=== PATIENT | female | born 1990 | race Caucasian/White ===

== ENCOUNTER 2019-01-28 17:34 | Emergency (ER) | payer SELFPAY ==
--- NOTE | 2019-01-28 19:29 | EDM.PDOC ---
ED HPI GENERAL MEDICAL PROBLEM - General Chief Complaint: Respiratory Problem Stated Complaint: ASTHMA,CHEST PAIN,SOB Time Seen by Provider: 01/28/19 17:46 Source of Information: Reports: Patient History Limitations: Reports: No Limitations - History of Present Illness INITIAL COMMENTS - FREE TEXT/NARRATIVE: The patient presents with chest pain and shortness of breath. She also has a cough. She has no fever but she has chills. She has a history of asthma and she was at the walk in clinic today and put on prednisone. She has not gotten any better. She has no abdominal pain, nausea or vomiting. She has some swelling in her legs at times but no history of DVT or PE. Onset: Gradual Duration: Day(s): Location: Reports: Chest Quality: Reports: Pressure, Sharp (and ) Severity: Moderate Improves with: Reports: None Worsens with: Reports: None Associated Symptoms: Reports: Chest Pain, Cough, Fever/Chills, Shortness of Breath. Denies: Headaches, Nausea/Vomiting Chest Pain Score (Numeric/FACES): 6 - Related Data Allergies Allergy/AdvReac Type Severity Reaction Status Date / Time grass pollen Allergy Cannot Verified 01/28/19 17:58 Remember cow milk Allergy Hives Uncoded 01/28/19 17:58 essential oils Allergy Anaphylactic Uncoded 01/28/19 17:58 Shock tylenol with codeine Allergy Vomiting Uncoded 01/28/19 17:58 Home Meds: Home Meds Albuterol [Proventil Neb Soln] 2.5 mg NEB ASDIRECTED 01/28/19 [History] Dicyclomine [Bentyl] 10 mg PO BID 01/28/19 [History] Doxycycline [Doxycycline Hyclate] 100 mg PO DAILY 01/28/19 [History] Eluxadoline [Viberzi] 100 mg PO DAILY 01/28/19 [History] Epi-Pen. 01/28/19 [History] Fluconazole [Diflucan] 100 mg PO ASDIRECTED 01/28/19 [History] LORazepam 0.5 mg PO BID PRN 01/28/19 [History] Levothyroxine Sodium [Synthroid] 25 mcg PO DAILY 01/28/19 [History] Lisdexamfetamine Dimesylate [Vyvanse] 20 mg PO DAILY 01/28/19 [History] Metoprolol Succinate 50 mg PO DAILY 01/28/19 [History] Mirtazapine 45 mg PO BEDTIME 01/28/19 [History] Mirtazapine [Remeron] 15 mg PO DAILY 01/28/19 [History] Pantoprazole Sodium [Protonix] 40 mg PO DAILY 01/28/19 [History] QUEtiapine [SEROquel] 300 mg PO BEDTIME 01/28/19 [History] SUMAtriptan [Imitrex] 100 mg PO ASDIRECTED PRN 01/28/19 [History] Temazepam 30 mg PO BEDTIME 01/28/19 [History] Topiramate [Topamax] 100 mg PO ASDIRECTED 01/28/19 [History] buPROPion [buPROPion XL] 300 mg PO DAILY 01/28/19 [History] lamoTRIgine [Lamotrigine] 50 mg PO BID 01/28/19 [History] metFORMIN [Glucophage] 500 mg PO DAILY 01/28/19 [History] predniSONE 40 mg PO DAILY 01/28/19 [History] Past Medical History Respiratory History: Reports: Asthma Gastrointestinal History: Reports: Irritable Bowel Syndrome [address] [employer] History: Reports: Endometriosis Psychiatric History: Reports: Depression Social & Family History - Tobacco Use Smoking Status *Q: Current Some Day Smoker Years of Tobacco use: 1 Packs/Tins Daily: 0.1 - Recreational Drug Use Recreational Drug Use: No ED ROS GENERAL - Review of Systems Review Of Systems: See Below Constitutional: Reports: Chills. Denies: Fever HEENT: Reports: No Symptoms Respiratory: Reports: Shortness of Breath Cardiovascular: Reports: Chest Pain Endocrine: Reports: No Symptoms GI/Abdominal: Reports: No Symptoms : Reports: No Symptoms Musculoskeletal: Reports: No Symptoms Skin: Reports: No Symptoms Neurological: Reports: No Symptoms ED EXAM, GENERAL - Physical Exam Exam: See Below Exam Limited By: No Limitations General Appearance: Alert, No Apparent Distress Ears: Normal External Exam Nose: Normal Inspection Head: Atraumatic, Normocephalic Neck: Normal Inspection Respiratory/Chest: No Respiratory Distress, Lungs Clear, Normal Breath Sounds Cardiovascular: Regular Rate, Rhythm, No Edema, No Murmur GI/Abdominal: Soft, Non-Tender, No Organomegaly, No Mass Back Exam: Normal Inspection Extremities: Normal Inspection EKG INTERPRETATION EKG Date: 01/28/19 Time: 16:13 Rhythm: NSR Rate (Beats/Min): 83 [place]: Normal P-Wave: Present QRS: Normal ST-T: Normal QT: Normal Course - Vital Signs Last Recorded V/S: Last Vital Signs Temp 97.3 F 01/28/19 17:43 Pulse 83 01/28/19 17:43 Resp 18 01/28/19 17:43 BP 112/82 01/28/19 17:43 Pulse Ox 97 01/28/19 17:43 - Orders/Labs/Meds Orders: Active Orders 24 hr Category Date Time Status Cardiac Monitoring [RC] . DIRECTED Care 01/28/19 17:54 Active EKG Documentation Completion [RC] STAT Care 01/28/19 17:54 Active Chest 2V [CR] Stat Exams 01/28/19 17:54 Taken traMADol [Ultram] Med 01/28/19 19:40 Once 100 mg PO ONETIME ONE Labs: Laboratory Tests 01/28/19 01/28/19 01/28/19 Range/Units 18:05 18:05 18:05 WBC 8.25 (3.98-10.04) K/mm3 RBC 4.73 (3.98-5.22) M/mm3 Hgb 14.9 (11.2-15.7) gm/L Hct 43.4 (34.1-44.9) % MCV 91.8 (79.4-94.8) fl MCH 31.5 (25.6-32.2) pg MCHC 34.3 (32.2-35.5) g/dl RDW Std Deviation 41.4 (36.4-46.3) fL Plt Count 283 (182-369) K/mm3 MPV 9.3 L (9.4-12.3) fl Neut % (Auto) 84.4 H (34.0-71.1) % Lymph % (Auto) 12.8 L (19.3-51.7) % Wilkin % (Auto) 2.1 L (4.7-12.5) % Eos % (Auto) 0.4 L (0.7-5.8) Baso % (Auto) 0.2 (0.1-1.2) % Neut # (Auto) 6.96 H (1.56-6.13) K/mm3 Lymph # (Auto) 1.06 L (1.18-3.74) K/mm3 Wilkin # (Auto) 0.17 L (0.24-0.36) K/mm3 Eos # (Auto) 0.03 L (0.04-0.36) K/mm3 Baso # (Auto) 0.02 (0.01-0.08) K/mm3 D-Dimer, Quantitative 0.30 (0.19-0.50) mg/L Sodium 141 (136-145) mEq/L Potassium 4.0 (3.5-5.1) mEq/L Chloride 110 H (98-107) mEq/L Carbon Dioxide 19 L (21-32) mEq/L Anion Gap 16.0 H (5-15) BUN 13 (7-18) mg/dL Creatinine 1.0 (0.55-1.02) mg/dL Est Cr Clr Drug Dosing 63.20 mL/min Estimated GFR (MDRD) > 60 (>60) mL/min BUN/Creatinine Ratio 13.0 L (14-18) Glucose 165 H (74-106) mg/dL Calcium 8.9 (8.5-10.1) mg/dL Total Bilirubin 0.3 (0.2-1.0) mg/dL AST 23 (15-37) U/L ALT 33 (14-59) U/L Alkaline Phosphatase 69 (46-116) U/L Troponin I < 0.017 (0.00-0.056) ng/mL Total Protein 7.3 (6.4-8.2) g/dl Albumin 3.5 (3.4-5.0) g/dl Globulin 3.8 gm/dL Albumin/Globulin Ratio 0.9 L (1-2) - Re-Assessments/Exams Free Text/Narrative Re-Assessment/Exam: 01/28/19 19:32 I ordered an EKG, CXR and labs. He EKG shows a NSR with no acute changes. Her CXR looks good. Her CBC looks good. Her D-dimer was normal and her troponin was negative. Her anion gap was slightly elevated at 16. Her glucose was elevated at 165. 01/28/19 19:41 I will give her an ultram for her pain and discharge her home. Departure - Departure Time of Disposition: 19:45 Disposition: Home, Self-Care 01 Condition: Good Clinical Impression: Chest wall pain Asthma exacerbation Qualifiers: Asthma severity: mild Asthma persistence: intermittent Qualified Code(s): J45.21 - Mild intermittent asthma with (acute) exacerbation - Discharge Information *PRESCRIPTION DRUG MONITORING PROGRAM REVIEWED*: Not Applicable *COPY OF PRESCRIPTION DRUG MONITORING REPORT IN PATIENT GUME: Not Applicable Referrals: PCP,None [Primary Care Provider] - Forms: ED Department Discharge Additional Instructions: Take the prednisone as prescribed and use your albuterol inhaler as needed. Take tylenol as needed for pain. Follow up with your doctor in 1 week. Please return if you are worse. - My Orders Last 24 Hours: My Active Orders 01/28/19 17:54 Cardiac Monitoring [RC] . DIRECTED EKG Documentation Completion [RC] STAT Chest 2V [CR] Stat 01/28/19 19:40 traMADol [Ultram] 100 mg PO ONETIME ONE - Assessment/Plan Last 24 Hours: My Active Orders 01/28/19 17:54 Cardiac Monitoring [RC] . DIRECTED EKG Documentation Completion [RC] STAT Chest 2V [CR] Stat 01/28/19 19:40 traMADol [Ultram] 100 mg PO ONETIME ONE
[2019-01-28] MEDS ORDERED: traMADol 50 MG Tab PO ONE (19:40)
--- NOTE | 2019-01-29 06:27 | CR ---
Chest: Two views of the chest were obtained. Comparison: No prior chest x-ray. Heart size and mediastinum are normal. Lungs are clear. Bony structures are unremarkable. Impression: 1. Nothing acute is seen on two-view chest x-ray. Diagnostic code #1
== END 2019-01-28 20:09 | disposition home or self-care (01) ==
LOC: JD.ED 17:34
DX: R07.89 Other chest pain (principal); F32.9 Major depressive disorder, single episode, unspecified; F17.210 Nicotine dependence, cigarettes, uncomplicated; Z91.011 Allergy to milk products; Z91.018 Allergy to other foods
CPT/HCPCS: 36415; 71046; 80053; 84484; 85025; 85379; 93005; 99285; A9270; 93010; 99284

== ENCOUNTER 2019-09-27 23:37 | Emergency (ER) | payer SELFPAY ==
--- NOTE | 2019-09-28 01:25 | EDM.PDOC ---
ED HPI GENERAL MEDICAL PROBLEM - General Chief Complaint: Respiratory Problem Stated Complaint: COUGH LOSS OF VOICE Time Seen by Provider: 09/28/19 00:51 Source of Information: Reports: Patient, Family () History Limitations: Reports: No Limitations - History of Present Illness INITIAL COMMENTS - FREE TEXT/NARRATIVE: Mrs. Hale is a very pleasant 29-year-old woman with a past medical history significant for asthma, irritable bowel syndrome, endometriosis, prediabetes, and untreated depression, PTSD, and obstructive sleep apnea, who states that she has been sick on and off for the past month. She reports a cough occasionally productive of green sputum, and slight wheezing. She reports laryngitis, and, indeed, she has a hoarse, thin voice at this time. She states that her back and stomach have been hurting. These are no worse if she is supine. She states that she has had some nausea, but no vomiting. She denies having a sore throat. No recent fever, constipation, diarrhea, or urinary symptoms. The patient has been taking Mucinex, Sudafed, and Delsym, all without any relief of symptoms. The patient states that she saw Dr. Carline Addison on 08/24/2019, but that no tests were done. She was diagnosed with bronchitis, and prescribed prednisone. She states that she then saw her PCP on 09/18/2019. She states that again no tests were done, but that she was prescribed a Z-Bebo and Flovent. She states that the Flovent was to treat her asthma, but the patient does not know why she was prescribed a Z-Bebo. She states that she then saw Allie Martinez NP, on 09/22/2019. She states that again no tests were done, but that she was prescribed prednisone and amoxicillin , again to treat asthma and something else. The patient's PCP is Jenni Vazquez NP. The patient did not receive an influenza vaccine this season, but agreed to receive one here. - Related Data Allergies Allergy/AdvReac Type Severity Reaction Status Date / Time grass pollen Allergy Cannot Verified 09/28/19 00:05 Remember cow milk Allergy Hives Uncoded 08/30/19 07:58 essential oils Allergy Anaphylactic Uncoded 08/30/19 07:58 Shock tylenol with codeine Allergy Vomiting Uncoded 08/30/19 07:58 Home Meds: Home Meds Albuterol [Proventil Neb Soln] 2.5 mg NEB ASDIRECTED 01/28/19 [History] Epi-Pen. 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: Reports: Endometriosis (exploratory laparoscopy-confirmed) Psychiatric History: Reports: Depression (untreated), PTSD (untreated) Endocrine/Metabolic History: Reports: Obesity/BMI 30+, Other (See Below) ( Prediabetes) - Past Surgical History HEENT Surgical History: Reports: Adenoidectomy, Oral Surgery (wisdom teeth extraction), Tonsillectomy GI Surgical History: Reports: Colonoscopy (x 3), EGD (x 2) Female Surgical History: Reports: Other (See Below) (Exploratory laparoscopy for endometriosis x 2) Musculoskeletal Surgical History: Reports: Other (See Below) (Right patellar realignment) Social & Family History - Family History Family Medical History: Noncontributory - Tobacco Use Smoking Status *Q: Former Smoker Years of Tobacco use: 11 Packs/Tins Daily: 0.1 Month/Year Tobacco Last Used: Quit March 2019 - Caffeine Use Caffeine Use: Reports: Coffee, Energy Drinks, Soda, Tea - Alcohol Use Alcohol Use History: Yes Alcohol Use Frequency: Socially - Recreational Drug Use Recreational Drug Use: No - Living Situation & Occupation Living situation: Reports: , with Spouse Occupation: Unemployed ED ROS GENERAL - Review of Systems Review Of Systems: Comprehensive ROS is negative, except as noted in HPI. ED EXAM, GENERAL - Physical Exam Exam: See Below Exam Limited By: No Limitations General Appearance: Alert, WD/WN, No Apparent Distress Eye Exam: Bilateral Eye: EOMI, Normal Inspection Ears: Normal External Exam, Normal Canal, Hearing Grossly Normal, Normal TMs Nose: Normal Inspection, No Blood, Other (Bilateral nasal mucosa edema) Throat/Mouth: Normal Inspection, Normal Lips, Normal Teeth, Normal Gums, Normal Oropharynx, No Airway Compromise, Other (Hoarse voice) Head: Atraumatic, Normocephalic Neck: Normal Inspection, Supple, Non-Tender, Full Range of Motion. No: Lymphadenopathy (L), Lymphadenopathy (R) Respiratory/Chest: No Respiratory Distress, No Accessory Muscle Use, Chest Non- Tender, Crackles (slight, right lungfield only). No: Decreased Breath Sounds, Rhonchi, Wheezing, Stridor, Prolonged Expiration Cardiovascular: Normal Peripheral Pulses, Regular Rate, Rhythm, No Edema, No Gallop, No JVD, No Murmur, No Rub Peripheral Pulses: 4+: Radial (L), Radial (R) GI/Abdominal: Normal Bowel Sounds, Soft, Non-Tender, No Organomegaly, No Distention, No Abnormal Bruit, No Mass (Female) Exam: Deferred Rectal (Female) Exam: Deferred Back Exam: Normal Inspection, Full Range of Motion, NT Extremities: Normal Inspection, Normal Range of Motion, No Pedal Edema, Normal Capillary Refill Neurological: Alert, Oriented, Normal Cognition, No Motor/Sensory Deficits Psychiatric: Normal Affect Skin Exam: Warm, Dry, Intact, Normal Color, No Rash Course - Vital Signs Last Recorded V/S: Last Vital Signs Temp 36.2 C 09/28/19 00:01 Pulse 77 09/28/19 00:01 Resp 20 09/28/19 00:01 BP 115/75 09/28/19 00:01 Pulse Ox 97 09/28/19 00:01 - Orders/Labs/Meds Meds: Medications Discontinued Medications Generic Name Dose Route Start Last Admin Trade Name Freq PRN Reason Stop Dose Admin Influenza Virus Vaccine 60 mcg 09/28/19 02:30 09/28/19 03:16 Fluzone Quad [id number] Syringe IM 09/28/19 02:31 60 mcg .ONCE ONE Administration - Re-Assessments/Exams Free Text/Narrative Re-Assessment/Exam: 09/28/19 02:05 Because I thought I heard some crackles on the right lung field, I ordered a chest x-ray, but because the patient has not had a fever, and her oxygen saturation is normal, I did not order any blood work. 2-view chest radiograph appears to be grossly normal. The cardiac silhouette is within normal limits. No pulmonary vascular congestion. No pleural effusions. No focal infiltrate. No pneumothorax. Formal read per the Radiologist pending. Chest x-ray results discussed with the patient and her . The patient appears to have a viral URI with postnasal drip causing her to have a cough. She is not suffering from an asthma exacerbation, and she does not have bronchitis or pneumonia. I recommended that she stop taking the over-the- counter cough and cold remedies that she has been taking, all of which are of no use. I had the respiratory therapist provide the patient a peak flow meter and a space chamber, with instructions to the patient on how to use them. The patient will receive an influenza vaccine prior to discharge. Departure - Departure Time of Disposition: 02:13 Disposition: Home, Self-Care 01 Condition: Good Clinical Impression: Viral URI with cough - Discharge Information *PRESCRIPTION DRUG MONITORING PROGRAM REVIEWED*: Not Applicable *COPY OF PRESCRIPTION DRUG MONITORING REPORT IN PATIENT GUME: Not Applicable Instructions: Upper Respiratory Infection, Adult, [id number] Referrals: Jenni Vazquez MD [Primary Care Provider] - Forms: ED Department Discharge Additional Instructions: You were seen in the emergency room for 1 month of a cough with laryngitis. Workup in the ER included a chest x-ray, which returned normal. You do not have pneumonia or bronchitis. Based on your history, physical exam, and chest x-ray results, your cough and laryngitis are most likely due to a viral URI, also known as a common cold. You are not suffering from an asthma exacerbation. As discussed, we recommend that you discontinue all of the [id number] cough and cold medicines, as well as the Flovent. You have been given a peak flow meter and a space chamber. If you are suffering from shortness of breath and wheezing, with or without a cough, check your peak flow. If it is in the green zone, do not use albuterol, however, if it is in the yellow or red zone, use albuterol as much as necessary to get relief. If you require albuterol more often than every 4 hours, you need to be seen by a doctor. Make sure that you use your space chamber whenever you use your albuterol MDI, and be sure to shake your MDI for at least 10 seconds prior to activating it. If any other problems, please do not hesitate to return to the ER. *You received an influenza vaccine during your ER visit.* Sepsis Event Note - Evaluation Sepsis Screening Result: No Definite Risk - Focused Exam Date Exam was Performed: 09/30/19 Time Exam was Performed: 23:21
[2019-09-28] MEDS ORDERED: FLU Vacc QS2019-20(6MOS+)/PF 60 MCG/0.5 ML SYRINGE IM ONE (02:30)
--- NOTE | 2019-09-28 07:50 | CR ---
Chest: Two views of the chest were obtained. Comparison: Prior chest x-ray of 01/28/19. Heart size and mediastinum are normal. Lungs are clear with no acute parenchymal change. Bony structures are unremarkable. Impression: 1. Nothing acute is seen on two-view chest x-ray. Diagnostic code #1 This report was dictated in [place] Standard Time
== END 2019-09-28 03:17 | disposition home or self-care (01) ==
LOC: JD.ED 23:37
DX: J06.9 Acute upper respiratory infection, unspecified (principal); Z88.5 Allergy status to narcotic agent; Z91.011 Allergy to milk products; Z88.8 Allergy status to other drugs, medicaments and biological substances; Z91.018 Allergy to other foods; Z91.048 Other nonmedicinal substance allergy status; Z79.899 Other long term (current) drug therapy; Z98.890 Other specified postprocedural states; Z87.891 Personal history of nicotine dependence; Z23 Encounter for immunization
CPT/HCPCS: 71046; 71046-26; 90686; 99281; 99283-25; G0008

== ENCOUNTER 2019-10-12 08:54 | Emergency (ER) | payer SELFPAY ==
--- NOTE | 2019-10-12 09:38 | EDM.PDOC ---
ED HPI GENERAL MEDICAL PROBLEM - General Chief Complaint: Allergic Reaction Stated Complaint: POSS ALLERGIC REACTION Time Seen by Provider: 10/12/19 09:37 Source of Information: Reports: Patient History Limitations: Reports: No Limitations - History of Present Illness INITIAL COMMENTS - FREE TEXT/NARRATIVE: 29-year-old female presents to the ED with generalized pruritus and throat itching and feeling like it's closing with some difficulty breathing as well since inhaling aromatic essential oils last night. She developed a bit of a red rash on her upper anterior chest but otherwise feels generally pruritic. She has no asthmatic and did use her inhaler once last night. Start Benadryl 50 mg before bed last night and 25 mg at 0600 hrs. this morning without much relief. The nation reveals good air entry to both lung [place] without any wheezing. She is in no distress. Onset: Sudden Onset Date: 10/11/19 Onset Time: 21:00 Duration: Hour(s): (Used essential oils last night.), Constant, Other (Not getting better.) Location: Reports: Neck, Chest ( Eyes pruritus him difficulty breathing and wheezing. ), Generalized (Does like throat is closing.) Quality: Reports: Other Severity: Moderate (Mostly generalized itching with a sense of itching in her throat and throat closure.) Improves with: Reports: None Worsens with: Reports: None Context: Reports: Other (Inhalation of essential oils last night. She did not apply any to her skin.). Denies: Activity, Exercise, Lifting, Sick Contact, Trauma Associated Symptoms: Reports: Malaise, Other. 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 2 mg last night about 2200 hrs. and 25 mg at 0600 hrs. this morning.) Throat Pain Score (Numeric/FACES): 6 - Related Data Allergies Allergy/AdvReac Type Severity Reaction Status Date / Time grass pollen Allergy Cannot Verified 10/12/19 09:05 Remember cow milk Allergy Hives Uncoded 10/12/19 09:05 essential oils Allergy Anaphylactic Uncoded 10/12/19 09:05 Shock tylenol with codeine Allergy Vomiting Uncoded 10/12/19 09:05 Home Meds: Home Meds Albuterol [Proventil Neb Soln] 2.5 mg NEB ASDIRECTED 01/28/19 [History] Epi-Pen. 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 Neurological History: Reports: Headaches, Chronic, Migraines Psychiatric History: Reports: ADHD, Anxiety, Depression, PTSD Endocrine/Metabolic History: Reports: Hypothyroidism, Obesity/BMI 30+, Other ( See Below) Other Endocrine/Metabolic History: insulin resistent - Infectious Disease History Infectious Disease History: Reports: Chicken Pox - Past Surgical History HEENT Surgical History: Reports: Adenoidectomy, Oral Surgery, Tonsillectomy GI Surgical History: Reports: Colonoscopy, EGD Female Surgical History: Reports: Other (See Below) Musculoskeletal Surgical History: Reports: Other (See Below) Other Musculoskeletal Surgeries/Procedures:: R knee sx Social & Family History - Family History Family Medical History: Noncontributory - Tobacco Use Smoking Status *Q: Former Smoker Used Tobacco, but Quit: Yes Month/Year Tobacco Last Used: 03/2019 - Caffeine Use Caffeine Use: Reports: Coffee, Energy Drinks, Soda, Tea - Recreational Drug Use Recreational Drug Use: No - Living Situation & Occupation Living situation: Reports: , with Spouse Occupation: Unemployed ED ROS ALLERGIC REACTION - Review of Systems Review Of Systems: See Below Constitutional: Reports: Malaise, Weakness, Fatigue, Decreased Appetite. Denies : Fever, Chills, Weight Loss (Lesion taking Benadryl) HEENT: Reports: Throat Swelling (Does like her throat is slightly swollen. Moist is a little hoarse this morning as well.) Respiratory: Reports: Shortness of Breath, Wheezing, Cough. Denies: Pleuritic Chest Pain (Improved after taking albuterol neb at home.), Sputum, Hemoptysis Cardiovascular: Reports: No Symptoms Endocrine: Reports: Fatigue GI/Abdominal: Reports: No Symptoms : Reports: No Symptoms Musculoskeletal: Reports: No Symptoms Skin: Reports: Other (Little patch of red rash upper anterior chest just at the sternal clavicular joint midline) Neurological: Reports: Dizziness Psychiatric: Reports: No Symptoms (Generalized pruritus) Hematologic/Lymphatic: Reports: No Symptoms Immunologic: Reports: No Symptoms ED EXAM GENERAL NO PERIP PULSE - Physical Exam Exam: See Below Exam Limited By: No Limitations General Appearance: Alert, WD/WN, No Apparent Distress, Other (Vital signs temperature 36.3 with pulse of 61 and sinus respiratory disease 18 BP 109/83 O2 sats 94% on room air.) Eye Exam: Bilateral Eye: Normal Inspection (No inflammation of the conjunctiva) Ears: Normal TMs Nose: Normal Inspection Throat/Mouth: Normal Inspection, Normal Lips, Normal Teeth, Normal Oropharynx, Other Head: Atraumatic, Normocephalic (Uvula is slightly erythematous I believe from coughing.) Neck: Normal Inspection, Supple, Non-Tender, Full Range of Motion. No: Lymphadenopathy (L), Lymphadenopathy (R) Respiratory/Chest: No Respiratory Distress, Lungs Clear, Normal Breath Sounds, No Accessory Muscle Use, Chest Non-Tender. No: Wheezing, Stridor Cardiovascular: Normal Peripheral Pulses, Regular Rate, Rhythm, No Edema, No Gallop, No Murmur, No Rub GI/Abdominal: Normal Bowel Sounds, Soft, Non-Tender, No Organomegaly Extremities: Normal Inspection, Normal Range of Motion, Non-Tender, No Pedal Edema Neurological: Alert, Oriented, CN II-XII Intact, Normal Cognition, Normal Gait Psychiatric: Normal Affect, Normal Mood Skin Exam: Warm, Dry, Intact, Normal Color, No Rash (Light erythematous rash upper anterior chest.), Other (No hives) Course - Vital Signs Last Recorded V/S: Last Vital Signs Temp 36.3 C 10/12/19 09:01 Pulse 61 10/12/19 09:01 Resp 18 10/12/19 09:01 BP 109/83 10/12/19 09:01 Pulse Ox 94 L 10/12/19 09:01 - Orders/Labs/Meds Meds: Medications Discontinued Medications Generic Name Dose Route Start Last Admin Trade Name Freq PRN Reason Stop Dose Admin Hydroxyzine HCl 25 mg 10/12/19 09:48 10/12/19 10:07 Atarax PO 10/12/19 09:49 25 mg ONETIME ONE Administration Prednisone 30 mg 10/12/19 09:48 10/12/19 10:07 Prednisone PO 10/12/19 09:49 30 mg ONETIME ONE Administration - Radiology Interpretation Free Text/Narrative:: 29-year-old female presents to the ED with development of mild allergic reaction to inhaling and safety central oils last night. Suggest this at about 2100 hrs. and by 2200 hrs. appreciated that she was struggling a bit with throat swelling itching and generalized pruritus development and some shortness of breath. She did use Benadryl 50 mg last night about 2200 hrs. and you did use her albuterol inhaler. She was still somewhat symptomatic this morning and took Benadryl 25 mg at 0600 hrs. Examination reveals some mild erythematous rash anterior upper chest but no urticaria. She has suffered from generalized pruritus. There is no stridor. For the mouth and uvula are normal. Plan prednisone 30 mg by mouth now and Atarax 25 mg by mouth in the ED. She'll be discharged on prednisone 20 mg twice daily for the next 3 days with the next dose due at [facility]. Zyrtec 10 mg twice daily until no further itching. Note given to excuse her from the workplace today. Departure - Departure Time of Disposition: 09:58 Disposition: Home, Self-Care 01 Condition: Fair Clinical Impression: Allergic reaction Qualifiers: Encounter type: initial encounter Qualified Code(s): T78.40XA - Allergy, unspecified, initial encounter - Discharge Information *PRESCRIPTION DRUG MONITORING PROGRAM REVIEWED*: Not Applicable *COPY OF PRESCRIPTION DRUG MONITORING REPORT IN PATIENT GUME: Not Applicable Prescriptions: predniSONE [Prednisone] 20 mg PO BID #6 tablet Referrals: Jenni Vazquez MD [Primary Care Provider] - Forms: ED Department Discharge, ED Return to Work/School Form Additional Instructions: Evaluation the emergency room department in regards to development of allergy symptoms particularly to the upper airway and lungs after a using for inhaling aromatic oils. He is appear to be a significant irritant to your asthma and you developed upper airway inflammation from them as well. Also generalized itching. You have taken Benadryl last night and again this morning. 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 Initial dose of steroid prednisone was given in the ED 30 mg. You need to take 20 mg twice daily with breakfast and supper for the next 3 days with the next tablet being due at supper tonight. SPECT marked improvement in symptoms over the next 4 hours. Note given to excuse from the workplace today. Sepsis Event Note - Evaluation Sepsis Screening Result: No Definite Risk - Focused Exam Vital Signs: Vital Signs Temp Pulse Resp BP Pulse Ox 10/12/19 09:01 36.3 C 61 18 109/83 94 L Date Exam was Performed: 10/12/19 Time Exam was Performed: 11:16
[2019-10-12] MEDS ORDERED: predniSONE 20 MG Tab PO ONE (09:48)
[2019-10-12] MEDS ORDERED: hydrOXYzine HCl 25 MG Tab PO ONE (09:48)
== END 2019-10-12 10:48 | disposition home or self-care (01) ==
LOC: JD.ED 08:54
DX: T78.40XA Allergy, unspecified, initial encounter (principal); J45.909 Unspecified asthma, uncomplicated; E66.9 Obesity, unspecified; Z68.37 Body mass index [BMI] 37.0-37.9, adult; Z87.891 Personal history of nicotine dependence; Z79.899 Other long term (current) drug therapy; Z88.5 Allergy status to narcotic agent; Z91.018 Allergy to other foods; Z91.011 Allergy to milk products; Z91.048 Other nonmedicinal substance allergy status
CPT/HCPCS: 99283; A9270

== ENCOUNTER 2020-03-15 17:00 | Emergency (ER) | payer BC ==
[2020-03-15] MEDS ORDERED: predniSONE 10 MG Tab PO ONE (17:15)
[2020-03-15] MEDS ORDERED: Famotidine 20 MG Tab PO ONE (17:15)
--- NOTE | 2020-03-15 17:31 | EDM.PDOC ---
ED HPI GENERAL MEDICAL PROBLEM - General Chief Complaint: Allergic Reaction Stated Complaint: POSS ALLERGIC REACTION Time Seen by Provider: 03/15/20 17:09 Source of Information: Reports: Patient History Limitations: Reports: No Limitations - History of Present Illness INITIAL COMMENTS - FREE TEXT/NARRATIVE: The patient presents with an allergic reaction. She used some essential oils yesterday. She has a rash to her arm and back. She also has some throat swelling. She has no chest pain, abdominal pain, shortness of breath, nausea or vomiting. She did have an anaphylactic reaction with essential oils in the past. This was a shampoo and she did not realize essential oils were in it. Onset: Gradual Duration: Hour(s): Location: Reports: Back, Upper Extremity, Right Severity: Moderate Improves with: Reports: None Worsens with: Reports: None Associated Symptoms: Reports: No Other Symptoms - Related Data Allergies Allergy/AdvReac Type Severity Reaction Status Date / Time grass pollen Allergy Cannot Verified 03/15/20 17:11 Remember cow milk Allergy Hives Uncoded 10/12/19 09:05 essential oils Allergy Anaphylactic Uncoded 10/12/19 09:05 Shock tylenol with codeine Allergy Vomiting Uncoded 10/12/19 09:05 Home Meds: Home Meds Albuterol [Proventil Neb Soln] 2.5 mg NEB ASDIRECTED 01/28/19 [History] Epi-Pen. 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 Neurological History: Reports: Headaches, Chronic, Migraines Psychiatric History: Reports: ADHD, Anxiety, Depression, PTSD Endocrine/Metabolic History: Reports: Hypothyroidism, Obesity/BMI 30+, Other ( See Below) Other Endocrine/Metabolic History: insulin resistent - Infectious Disease History Infectious Disease History: Reports: Chicken Pox - Past Surgical History HEENT Surgical History: Reports: Adenoidectomy, Oral Surgery, Tonsillectomy GI Surgical History: Reports: Colonoscopy, EGD Female Surgical History: Reports: Other (See Below) Musculoskeletal Surgical History: Reports: Other (See Below) Other Musculoskeletal Surgeries/Procedures:: R knee sx Social & Family History - Family History Family Medical History: Noncontributory - Tobacco Use Smoking Status *Q: Never Smoker - Caffeine Use Caffeine Use: Reports: Coffee, Energy Drinks, Soda, Tea - Recreational Drug Use Recreational Drug Use: No - Living Situation & Occupation Living situation: Reports: , with Spouse Occupation: Unemployed ED ROS ALLERGIC REACTION - Review of Systems Review Of Systems: See Below Constitutional: Reports: No Symptoms HEENT: Reports: Other (Throat swelling) Respiratory: Reports: No Symptoms Cardiovascular: Reports: No Symptoms Endocrine: Reports: No Symptoms GI/Abdominal: Reports: No Symptoms : Reports: No Symptoms Musculoskeletal: Reports: No Symptoms Skin: Reports: Rash ED EXAM GENERAL NO PERIP PULSE - Physical Exam Exam: See Below Exam Limited By: No Limitations General Appearance: Alert, No Apparent Distress Ears: Normal External Exam Nose: Normal Inspection Throat/Mouth: Normal Inspection Head: Atraumatic, Normocephalic Neck: Normal Inspection Respiratory/Chest: No Respiratory Distress, Lungs Clear, Normal Breath Sounds Cardiovascular: Regular Rate, Rhythm, No Edema, No Murmur GI/Abdominal: Soft, Non-Tender, No Organomegaly, No Mass Back Exam: Normal Inspection Extremities: Normal Inspection Skin Exam: Other (The rash has improved. I only see a few small bumps) Course - Vital Signs Last Recorded V/S: Last Vital Signs Temp 98.2 F 03/15/20 17:08 Pulse 84 03/15/20 17:08 Resp 16 03/15/20 17:08 BP 118/74 03/15/20 17:08 Pulse Ox 98 03/15/20 17:08 - Orders/Labs/Meds Meds: Medications Discontinued Medications Generic Name Dose Route Start Last Admin Trade Name Freq PRN Reason Stop Dose Admin Famotidine 20 mg 03/15/20 17:15 03/15/20 17:22 Pepcid PO 03/15/20 17:16 20 mg ONETIME ONE Administration Prednisone 40 mg 03/15/20 17:15 03/15/20 17:22 Prednisone PO 03/15/20 17:16 40 mg ONETIME ONE Administration - Re-Assessments/Exams Free Text/Narrative Re-Assessment/Exam: 03/15/20 17:30 I ordered prednisone 40mg PO and pepcid 20mg PO. 03/15/20 18:14 She is not feeling worse. I feel it is safe to send her home. I will get her on prednisone and she should take pepcid and benadryl. Departure - Departure Time of Disposition: 18:15 Disposition: Home, Self-Care 01 Condition: Good Clinical Impression: Allergic reaction Qualifiers: Encounter type: initial encounter Qualified Code(s): T78.40XA - Allergy, unspecified, initial encounter - Discharge Information *PRESCRIPTION DRUG MONITORING PROGRAM REVIEWED*: Not Applicable *COPY OF PRESCRIPTION DRUG MONITORING REPORT IN PATIENT GUME: Not Applicable Prescriptions: predniSONE [Prednisone] 40 mg PO DAILY #10 tablet Referrals: Jenni Vazquez MD [Primary Care Provider] - 1 Week Forms: ED Department Discharge Additional Instructions: Take prednisone daily for 5 days. Take pepcid daily for 5 days. Take benadryl 50mg every 6 hours as needed for allergy symptoms. Please return if you are worse. Sepsis Event Note - Evaluation Sepsis Screening Result: No Definite Risk - Focused Exam Vital Signs: Vital Signs Temp Pulse Resp BP Pulse Ox 03/15/20 17:08 98.2 F 84 16 118/74 98 Date Exam was Performed: 03/15/20 Time Exam was Performed: 18:14
== END 2020-03-15 18:26 | disposition home or self-care (01) ==
LOC: JD.ED 17:00
DX: T78.40XA Allergy, unspecified, initial encounter (principal); J45.909 Unspecified asthma, uncomplicated; E66.9 Obesity, unspecified; Z88.5 Allergy status to narcotic agent; Z91.011 Allergy to milk products; Z91.048 Other nonmedicinal substance allergy status; Z91.018 Allergy to other foods; Z79.899 Other long term (current) drug therapy; Z68.39 Body mass index [BMI] 39.0-39.9, adult
CPT/HCPCS: 99283; A9270; J7512

== ENCOUNTER 2020-09-28 21:49 | Emergency (ER) | payer BC ==
--- NOTE | 2020-09-28 22:24 | EDM.PDOC ---
ED HPI GENERAL MEDICAL PROBLEM - General Chief Complaint: Respiratory Problem Stated Complaint: COUGHING UP BLOOD Time Seen by Provider: 09/28/20 22:25 Source of Information: Reports: Patient, RN Notes Reviewed - History of Present Illness INITIAL COMMENTS - FREE TEXT/NARRATIVE: 30 yr old female with onset of cough 2 days ago. Coughed some streaks of blood this afternoon and evening. That is her main concern. Low grade fever earlier today. Works at [employer] so does get exposed to people. No chest pain, does not feel short of breath. Does not smoke. Left Neck Pain Score (Numeric/FACES): 7 - Related Data Allergies Allergy/AdvReac Type Severity Reaction Status Date / Time grass pollen Allergy Cannot Verified 09/28/20 22:06 Remember cow milk Allergy Hives Uncoded 09/28/20 22:06 essential oils Allergy Anaphylactic Uncoded 09/28/20 22:06 Shock tylenol with codeine Allergy Vomiting Uncoded 09/28/20 22:06 Home Meds: Home Meds Albuterol [Proventil Neb Soln] 2.5 mg NEB ASDIRECTED 01/28/19 [History] Epi-Pen. 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 Neurological History: Reports: Headaches, Chronic, Migraines Psychiatric History: Reports: ADHD, Anxiety, Depression, PTSD Endocrine/Metabolic History: Reports: Hypothyroidism, Obesity/BMI 30+, Other (See Below) Other Endocrine/Metabolic History: insulin resistent - Infectious Disease History Infectious Disease History: Reports: Chicken Pox - Past Surgical History HEENT Surgical History: Reports: Adenoidectomy, Oral Surgery, Tonsillectomy GI Surgical History: Reports: Colonoscopy, EGD Female Surgical History: Reports: Other (See Below) Musculoskeletal Surgical History: Reports: Other (See Below) Other Musculoskeletal Surgeries/Procedures:: R knee sx Social & Family History - Family History Family Medical History: No Pertinent Family History - Tobacco Use Tobacco Use Status *Q: Never Tobacco User Second Hand Smoke Exposure: No - Caffeine Use Caffeine Use: Reports: None - Recreational Drug Use Recreational Drug Use: No - Living Situation & Occupation Living situation: Reports: , with Spouse Occupation: Unemployed ED ROS GENERAL - Review of Systems Review Of Systems: See Below Constitutional: Denies: Fever, Chills, Diaphoresis HEENT: Denies: Throat Pain Respiratory: Denies: Shortness of Breath, Pleuritic Chest Pain Cardiovascular: Denies: Chest Pain GI/Abdominal: Denies: Abdominal Pain Musculoskeletal: Reports: Other (mild achiness) Neurological: Denies: Headache ED EXAM, GENERAL - Physical Exam Exam: See Below General Appearance: Alert, No Apparent Distress Head: Atraumatic Neck: Supple Respiratory/Chest: No Respiratory Distress, Lungs Clear, Normal Breath Sounds. No: Rhonchi, Wheezing Cardiovascular: Regular Rate, Rhythm GI/Abdominal: Soft, Non-Tender Extremities: No: Pedal Edema, Leg Pain Neurological: Alert, Oriented, No Motor/Sensory Deficits Course - Vital Signs Last Recorded V/S: Last Vital Signs Temp 98.3 F 09/28/20 22:03 Pulse 74 09/28/20 22:03 Resp 16 09/28/20 22:03 BP 126/86 09/28/20 22:03 Pulse Ox 97 09/28/20 22:03 - Orders/Labs/Meds Orders: Active Orders 24 hr Category Date Time Status Chest 1V Frontal [CR] Stat Exams 09/28/20 22:25 Taken CORONAVIRUS COVID-19 PCR [facility] Stat Lab 09/28/20 23:36 Ordered - Re-Assessments/Exams Free Text/Narrative Re-Assessment/Exam: 09/28/20 23:48 CXR nl, covid screen done to send to the state. Departure - Departure Time of Disposition: 23:40 Disposition: Home, Self-Care 01 Condition: Fair Clinical Impression: Viral syndrome, Bronchitis - Discharge Information Instructions: COVID-19, Prevent the Spread of COVID-19 if You Are Sick - [facility] Referrals: Jenni Vazquez, OPERATIONS OFFICER [employer] [Primary Care Provider] - Forms: ED Department Discharge, ED Return to Work/School Form Additional Instructions: Your CXR is clear, no pneumonia. Your oxygen levels are very good. You need to isolate at home until you get results of the covid screen. We will call you when results come, usually in 2 to 3 days. Vaporizer or steam as needed. Return to ED as needed, especially for any severe difficulty breathing. Sepsis Event Note (ED) - Evaluation Sepsis Screening Result: No Definite Risk - Focused Exam Vital Signs: Vital Signs Temp Pulse Resp BP Pulse Ox 09/28/20 22:03 98.3 F 74 16 126/86 97 - My Orders Last 24 Hours: My Active Orders 09/28/20 22:25 Chest 1V Frontal [CR] Stat 09/28/20 23:36 CORONAVIRUS COVID-19 PCR [facility] Stat - Assessment/Plan Last 24 Hours: My Active Orders 09/28/20 22:25 Chest 1V Frontal [CR] Stat 09/28/20 23:36 CORONAVIRUS COVID-19 PCR [facility] Stat
--- NOTE | 2020-09-29 12:28 | CR ---
Chest: Portable view of the chest was obtained. Comparison: Prior chest x-ray performed on 09/28/19. Heart size and mediastinum are normal. Lungs are clear with no acute parenchymal change. Bony structures are grossly intact. Impression: 1. Nothing acute is seen on portable chest x-ray. Diagnostic code #1
== END 2020-09-28 23:50 | disposition home or self-care (01) ==
LOC: JD.ED 21:49
DX: J40 Bronchitis, not specified as acute or chronic (principal); B34.9 Viral infection, unspecified; F41.9 Anxiety disorder, unspecified; F32.9 Major depressive disorder, single episode, unspecified; E66.9 Obesity, unspecified; Z68.37 Body mass index [BMI] 37.0-37.9, adult; Z91.048 Other nonmedicinal substance allergy status; Z91.011 Allergy to milk products; Z88.5 Allergy status to narcotic agent; Z79.899 Other long term (current) drug therapy; Z20.828 Contact with and (suspected) exposure to other viral communicable diseases
CPT/HCPCS: 71045; 71045-26; 99283-25; U0002

== ENCOUNTER 2020-10-21 23:05 | Emergency (ER) | payer BC ==
--- NOTE | 2020-10-21 23:22 | EDM.PDOC ---
ED HPI GENERAL MEDICAL PROBLEM - General Chief Complaint: General Stated Complaint: light headed dizzy Time Seen by Provider: 10/21/20 23:21 Source of Information: Reports: Patient History Limitations: Reports: No Limitations - History of Present Illness INITIAL COMMENTS - FREE TEXT/NARRATIVE: 30-year-old female presents to the ED feeling weak lightheaded and dizzy. History suggest that on October 18 she began to feel unwell with sinus congestion/nasal congestion loss of sense of taste and smell and moderate sore throat. Subsequently developed a nonproductive cough over the last 3 days. Complete loss of appetite over the last 3 days. Last solid intake was last October 18. She is finding it difficulty even drink fluids. Urine is dark in color. Generalized myalgia particular involving her neck musculature and mildly in her lower back. She feels she may have contracted COVID-19 from either the [employer] or [employer] where she is employed. She has a history of asthma and does use your inhaler fairly often. She has not found it to help with her nonproductive cough at present. She is currently using Tessalon Perles for cough relief. Diarrhea stools are mostly yellow and watery. Usually 3 or 4 times per day for the last 3 days. No nausea or vomiting. Onset: Sudden Onset Date: 10/18/20 Duration: Day(s):, Getting Worse Location: Reports: Chest ( this.), Generalized (Generalized weakness, myalgia), Other ( Nonproductive cough complete loss of appetite for solids and fluids.) Quality: Reports: Ache (Nearly large muscles of neck and lower back.) Severity: Moderate Improves with: Reports: Medication (And all seems to help a little bit.) Worsens with: Reports: Movement Context: Denies: Activity, Exercise, Lifting, Sick Contact, Trauma, Other Associated Symptoms: Reports: Cough, Fever/Chills (Fever but no defined chills.), Headaches, Loss of Appetite, Malaise, Weakness, Other ([place] usually 3-4 loose watery stools per day for 3 days). Denies: No Other Symptoms, Confusion, Chest Pain (Nonproductive cough.), cough w sputum, Diaphoresis, Nausea/Vomiting, Rash, Seizure, Shortness of Breath, Syncope Treatments MANAGER FILM: Reports: Acetaminophen Headache Pain Score (Numeric/FACES): 4 - Related Data Allergies Allergy/AdvReac Type Severity Reaction Status Date / Time grass pollen Allergy Cannot Verified 10/21/20 23:19 Remember promethazine Allergy Rash Verified 10/21/20 23:19 cow milk Allergy Hives Uncoded 10/21/20 23:19 essential oils Allergy Anaphylactic Uncoded 10/21/20 23:19 Shock tylenol with codeine Allergy Vomiting Uncoded 10/21/20 23:19 Home Meds: Home Meds Albuterol [Proventil Neb Soln] 2.5 mg NEB ASDIRECTED 01/28/19 [History] Epi-Pen. 1 unit IM ONETIME PRN 01/28/19 [History] Montelukast [Singulair] 10 mg PO DAILY 08/30/19 [History] Desvenlafaxine Succinate [Pristiq] 25 mg PO DAILY 09/28/20 [History] QUEtiapine [SEROquel] 50 mg PO DAILY 09/28/20 [History] Doxycycline [Vibra-Tabs] 100 mg PO Q12HR #16 tab 10/22/20 [Rx] Ondansetron [Zofran] 4 mg BUCCAL Q6H PRN #5 tab 10/22/20 [Rx] Past Medical History HEENT History: Reports: Impaired Vision Cardiovascular History: Reports: Other (See Below) Other Cardiovascular History: R AV heart block Respiratory History: Reports: Asthma, Sleep Apnea Gastrointestinal History: Reports: GERD, Irritable Bowel Syndrome 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: Endometriosis Neurological History: Reports: Headaches, Chronic, Migraines Psychiatric History: Reports: ADHD, Anxiety, Depression, PTSD Endocrine/Metabolic History: Reports: Hypothyroidism, Obesity/BMI 30+, Other (See Below) Other Endocrine/Metabolic History: insulin resistent - Infectious Disease History Infectious Disease History: Reports: Chicken Pox - Past Surgical History HEENT Surgical History: Reports: Adenoidectomy, Oral Surgery, Tonsillectomy GI Surgical History: Reports: Colonoscopy, EGD Female Surgical History: Reports: Other (See Below) (She has had 2 laparoscopic surgeries for exploration of the pelvis for endometriosis.) Musculoskeletal Surgical History: Reports: Other (See Below) Other Musculoskeletal Surgeries/Procedures:: R knee sx Social & Family History - Family History Family Medical History: No Pertinent Family History - Tobacco Use Tobacco Use Status *Q: Never Tobacco User Second Hand Smoke Exposure: No - Caffeine Use Caffeine Use: Reports: Coffee, Energy Drinks, Soda, Tea - Recreational Drug Use Recreational Drug Use: No - Living Situation & Occupation Living situation: Reports: , with Spouse Occupation: Employed (Currently employed at [employer]) ED ROS GENERAL - Review of Systems Review Of Systems: See Below Constitutional: Reports: Fever, Malaise, Weakness, Fatigue, Decreased Appetite. Denies: Chills HEENT: Reports: Dental Pain (Has been having some dental pain both upper posterior molars. She claims that she had her wisdom teeth extracted. Pain coming primarily from the left upper second molar tooth.), Sinus Problem (Nasal congestion with associated loss of sense of taste and smell), Throat Pain Respiratory: Reports: Cough. Denies: Shortness of Breath, Wheezing, Pleuritic Chest Pain, Sputum, Hemoptysis (Productive) Cardiovascular: Reports: Lightheadedness. Denies: Chest Pain, Blood Pressure Problem, Claudication, Dyspnea on Exertion, Edema ([place] upon standing), Orthopnea, Palpitations Endocrine: Reports: Fatigue GI/Abdominal: Reports: Diarrhea (Usually 3-4 loose), Decreased Appetite. Denies: Hematochezia, Nausea ( diarrhea stools per day for the last 3 days.), Vomiting : Reports: Other (Urine is dark in color.) Musculoskeletal: Reports: Muscle Pain (Generalized myalgia particular involving her head neck musculature and lower back.) Skin: Reports: No Symptoms Neurological: Reports: Dizziness (Specially upon standing.), Weakness. Denies: Trouble Speaking, Difficulty Walking, Change in Speech, Gait Disturbance Psychiatric: Reports: No Symptoms Hematologic/Lymphatic: Reports: No Symptoms Immunologic: Reports: No Symptoms ED EXAM, GENERAL - Physical Exam Exam: See Below Exam Limited By: No Limitations General Appearance: Alert, WD/WN, No Apparent Distress, Other (Patient does feel warm to palpation. Temperature is recorded 37.0 but she does feel warmer than this heart rate was 95 and sinus respiratory was 18 with O2 sats of 93 to 94% while I was in the room. BP 118/73) Eye Exam: Bilateral Eye: Normal Inspection, PERRL Ears: Normal TMs Throat/Mouth: Normal Oropharynx (Mild diffuse oropharyngeal erythema without exudate.), Other (I could find no dental caries or significant gingival swelling along any of her upper molar teeth.) Head: Atraumatic, Normocephalic Neck: Normal Inspection, Supple, Non-Tender, Full Range of Motion. No: Carotid Bruit, Lymphadenopathy (L), Lymphadenopathy (R) Respiratory/Chest: No Respiratory Distress, Lungs Clear, Normal Breath Sounds, No Accessory Muscle Use. No: Rhonchi, Wheezing Cardiovascular: Normal Peripheral Pulses, Regular Rate, Rhythm, No Edema, No Gallop, No Murmur, No Rub, Tachycardia (100/min on my evaluation) Peripheral Pulses: 3+: Carotid (L), Carotid (R), Posterior Tibial (L), Posterior Tibial (R), Dorsalis Pedis (L), Dorsalis Pedis (R) GI/Abdominal: Normal Bowel Sounds, Soft, Non-Tender, No Organomegaly, No Abnormal Bruit, No Mass, Pelvis Stable, Other (Laparoscopic surgical scars at the inferior umbilicus.) Back Exam: Normal Inspection, Full Range of Motion. No: CVA Tenderness (L), CVA Tenderness (R) Extremities: Normal Inspection, Normal Range of Motion, Non-Tender, No Pedal Edema, Normal Capillary Refill Neurological: Alert, Oriented, CN II-XII Intact, Normal Cognition, Normal Reflexes Psychiatric: Normal Affect, Normal Mood Skin Exam: Warm, Dry, Intact, Normal Color, No Rash #1 Interpretation EKG Date: 10/21/20 Time: 23:58 Rhythm: NSR Rate (Beats/Min): 77 [place]: Normal P-Wave: Enlarged QRS: Other (Letter left atrial hypertrophy there are Q waves in lead V1 V2 may be due to lead placement. Cannot rule out old anteroseptal myocardial infarction there is decreased voltage in the precordial leads) ST-T: Normal QT: Normal EKG Interpretation Comments: Borderline ECG Course - Vital Signs Last Recorded V/S: Last Vital Signs Temp 37.0 C 10/21/20 23:15 Pulse 95 10/21/20 23:15 Resp 18 10/21/20 23:15 BP 118/73 10/21/20 23:15 Pulse Ox 95 10/21/20 23:15 Orthostatic Blood Pressure [ 116/75 Standing] Orthostatic Blood Pressure [ 111/79 Sitting] Orthostatic Blood Pressure [ 114/72 Supine] - Orders/Labs/Meds Orders: Active Orders 24 hr Category Date Time Status EKG Documentation Completion [RC] STAT Care 10/21/20 23:35 Active Orthostatic Vital Signs [RC] ASDIRECTED Care 10/21/20 23:20 Active Chest 1V Frontal [CR] Stat Exams 10/21/20 23:35 Taken Dextrose 5%-Lactated Ringers 1,000 ml Med 10/21/20 23:45 Active IV ASDIRECTED Doxycycline [Vibramycin] Med 10/22/20 01:27 Once 100 mg PO ONETIME ONE Ketorolac [Toradol] Med 10/21/20 23:45 Active 30 mg IVPUSH ONETIME Medication Orders Dextrose/Lactated Ringer's (Dextrose 5%-Lactated Ringers) 1,000 mls @ 999 mls/hr IV ASDIRECTED GREG Last Admin: 10/21/20 23:42 Dose: 999 mls/hr Documented by: [id number] Ketorolac Tromethamine (Toradol) 30 mg IVPUSH ONETIME GREG Last Admin: 10/21/20 23:42 Dose: 30 mg Documented by: [id number] Labs: Laboratory Tests 10/21/20 10/21/20 10/21/20 Range/Units 23:40 23:40 23:40 WBC 9.98 (3.98-10.04) K/mm3 RBC 4.66 (3.98-5.22) M/mm3 Hgb 14.2 (11.2-15.7) gm/dl Hct 41.9 (34.1-44.9) % MCV 89.9 (79.4-94.8) fl MCH 30.5 (25.6-32.2) pg MCHC 33.9 (32.2-35.5) g/dl RDW Std Deviation 39.6 (36.4-46.3) fL Plt Count 280 (182-369) K/mm3 MPV 9.4 (9.4-12.3) fl Neut % (Auto) 71.9 H (34.0-71.1) % Lymph % (Auto) 20.0 (19.3-51.7) % [place] % (Auto) 5.7 (4.7-12.5) % Eos % (Auto) 1.9 (0.7-5.8) Baso % (Auto) 0.2 (0.1-1.2) % Neut # (Auto) 7.17 H (1.56-6.13) K/mm3 Lymph # (Auto) 2.00 (1.18-3.74) K/mm3 [place] # (Auto) 0.57 H (0.24-0.36) K/mm3 Eos # (Auto) 0.19 (0.04-0.36) K/mm3 Baso # (Auto) 0.02 (0.01-0.08) K/mm3 D-Dimer, Quantitative 0.33 (0.19-0.50) mg/L Sodium 139 (136-145) mEq/L Potassium 3.1 L (3.5-5.1) mEq/L Chloride 104 (98-107) mEq/L Carbon Dioxide 26 (21-32) mEq/L Anion Gap 12.1 (5-15) BUN 10 (7-18) mg/dL Creatinine 0.8 (0.55-1.02) mg/dL Est Cr Clr Drug Dosing 77.59 mL/min Estimated GFR (MDRD) > 60 (>60) mL/min BUN/Creatinine Ratio 12.5 L (14-18) Glucose 140 H (74-106) mg/dL Calcium 8.7 (8.5-10.1) mg/dL Magnesium 1.9 (1.8-2.4) mg/dl Ferritin (8-252) ng/ml Total Bilirubin 0.3 (0.2-1.0) mg/dL AST 11 L (15-37) U/L ALT 23 (14-59) U/L Alkaline Phosphatase 61 (46-116) U/L Lactate Dehydrogenase 155 (81-234) U/L Troponin I < 0.017 (0.00-0.056) ng/mL C-Reactive Protein <0.2 (<1.0) mg/dL Total Protein 6.9 (6.4-8.2) g/dl Albumin 3.3 L (3.4-5.0) g/dl Globulin 3.6 gm/dL Albumin/Globulin Ratio 0.9 L (1-2) HCG, Qual (NEGATIVE) Ketones (0.0-0.3) mM SARS-CoV-2 RNA (JOSH) (NEGATIVE) 10/21/20 10/21/20 10/21/20 Range/Units 23:40 23:40 23:40 WBC (3.98-10.04) K/mm3 RBC (3.98-5.22) M/mm3 Hgb (11.2-15.7) gm/dl Hct (34.1-44.9) % MCV (79.4-94.8) fl MCH (25.6-32.2) pg MCHC (32.2-35.5) g/dl RDW Std Deviation (36.4-46.3) fL Plt Count (182-369) K/mm3 MPV (9.4-12.3) fl Neut % (Auto) (34.0-71.1) % Lymph % (Auto) (19.3-51.7) % [place] % (Auto) (4.7-12.5) % Eos % (Auto) (0.7-5.8) Baso % (Auto) (0.1-1.2) % Neut # (Auto) (1.56-6.13) K/mm3 Lymph # (Auto) (1.18-3.74) K/mm3 [place] # (Auto) (0.24-0.36) K/mm3 Eos # (Auto) (0.04-0.36) K/mm3 Baso # (Auto) (0.01-0.08) K/mm3 D-Dimer, Quantitative (0.19-0.50) mg/L Sodium (136-145) mEq/L Potassium (3.5-5.1) mEq/L Chloride (98-107) mEq/L Carbon Dioxide (21-32) mEq/L Anion Gap (5-15) BUN (7-18) mg/dL Creatinine (0.55-1.02) mg/dL Est Cr Clr Drug Dosing mL/min Estimated GFR (MDRD) (>60) mL/min BUN/Creatinine Ratio (14-18) Glucose (74-106) mg/dL Calcium (8.5-10.1) mg/dL Magnesium (1.8-2.4) mg/dl Ferritin 85 (8-252) ng/ml Total Bilirubin (0.2-1.0) mg/dL AST (15-37) U/L ALT (14-59) U/L Alkaline Phosphatase (46-116) U/L Lactate Dehydrogenase (81-234) U/L Troponin I (0.00-0.056) ng/mL C-Reactive Protein (<1.0) mg/dL Total Protein (6.4-8.2) g/dl Albumin (3.4-5.0) g/dl Globulin gm/dL Albumin/Globulin Ratio (1-2) HCG, Qual Negative (NEGATIVE) Ketones (0.0-0.3) mM SARS-CoV-2 RNA (JOSH) Negative (NEGATIVE) 10/21/20 Range/Units 23:40 WBC (3.98-10.04) K/mm3 RBC (3.98-5.22) M/mm3 Hgb (11.2-15.7) gm/dl Hct (34.1-44.9) % MCV (79.4-94.8) fl MCH (25.6-32.2) pg MCHC (32.2-35.5) g/dl RDW Std Deviation (36.4-46.3) fL Plt Count (182-369) K/mm3 MPV (9.4-12.3) fl Neut % (Auto) (34.0-71.1) % Lymph % (Auto) (19.3-51.7) % [place] % (Auto) (4.7-12.5) % Eos % (Auto) (0.7-5.8) Baso % (Auto) (0.1-1.2) % Neut # (Auto) (1.56-6.13) K/mm3 Lymph # (Auto) (1.18-3.74) K/mm3 [place] # (Auto) (0.24-0.36) K/mm3 Eos # (Auto) (0.04-0.36) K/mm3 Baso # (Auto) (0.01-0.08) K/mm3 D-Dimer, Quantitative (0.19-0.50) mg/L Sodium (136-145) mEq/L Potassium (3.5-5.1) mEq/L Chloride (98-107) mEq/L Carbon Dioxide (21-32) mEq/L Anion Gap (5-15) BUN (7-18) mg/dL Creatinine (0.55-1.02) mg/dL Est Cr Clr Drug Dosing mL/min Estimated GFR (MDRD) (>60) mL/min BUN/Creatinine Ratio (14-18) Glucose (74-106) mg/dL Calcium (8.5-10.1) mg/dL Magnesium (1.8-2.4) mg/dl Ferritin (8-252) ng/ml Total Bilirubin (0.2-1.0) mg/dL AST (15-37) U/L ALT (14-59) U/L Alkaline Phosphatase (46-116) U/L Lactate Dehydrogenase (81-234) U/L Troponin I (0.00-0.056) ng/mL C-Reactive Protein (<1.0) mg/dL Total Protein (6.4-8.2) g/dl Albumin (3.4-5.0) g/dl Globulin gm/dL Albumin/Globulin Ratio (1-2) HCG, Qual (NEGATIVE) Ketones 0.02 (0.0-0.3) mM SARS-CoV-2 RNA (JOSH) (NEGATIVE) Meds: Medications Generic Name Dose Route Start Last Admin Trade Name Chaparroq PRN Reason Stop Dose Admin Dextrose/Lactated Ringer's 1,000 mls @ 999 mls/hr 10/21/20 23:45 10/21/20 23:42 Dextrose 5%-Lactated Ringers IV 999 mls/hr ASDIRECTED GREG Administration Ketorolac Tromethamine 30 mg 10/21/20 23:45 10/21/20 23:42 Toradol IVPUSH 30 mg ONETIME GREG Administration - Radiology Interpretation Free Text/Narrative:: 30-year-old female presents to the ED feeling weak lightheaded and dizzy. History suggest that she became ill on October 18. Generalized myalgia particularly involving her neck musculature with a headache. Nasal congestion with loss of sense of taste and smell. Loss of inability to eat any solids for the last 3 days. Not taking much in the way of fluids either. Development of diarrhea for 3 days with 3-4 loose watery diarrhea stools per day. Nonproductive cough. Using Tessalon Perles to control cough. Low-grade fever up to 101.6 at home. Clinically showing signs symptoms of COVID-19 illness which appears to be fairly mild at this time. Plan COVID-19 screen routine labs including serum ferritin LDH and troponin and D-dimer. 1 view chest x-ray to be obtained IV fluids will be D5 Ringer's lactate at open. History of comorbid illnesses are that of obesity with a BMI greater than 37.8 and a history of asthma. - Re-Assessments/Exams Free Text/Narrative Re-Assessment/Exam: 10/22/20 00:01: Orthostatic BP showed a lying blood pressure of 114/72 with a heart rate of 82. Sitting 92 heart rate with BP 10/20/1978 and standing BP 116/75 with a heart rate of 105 indicating mild orthostatic change. Chest x-ray done portably reveals mild groundglass appearance to both lower lobes of the lung field suggesting developing a viral pneumonia.Hematology reveals a white count of 9.98 with an auto differential of 71.9%. Hemoglobin 14.2 with hematocrit of 41.9 platelet count 280,000 10/22/20 00:36 D-dimer level is normal at 0.33. Sodium 139 with potassium slightly low at 3.1. 0.104 the bicarb of 26 and an anion gap of 12.1. BUN is 10 with a creatinine of 0.8 and a GFR greater than 60. Glucose is 140 calcium is 8.7 with a magnesium of 1.9. Serum ferritin is 85 liver function is normal. LDH is 155 troponin I is less than 0.017 C-reactive protein is less than 0.2 total protein 6.9 with an albumin fraction slightly low at 3.3 beta-hCG is negative. Serum ketones are also normal at 0.02 10/22/20 01:10 Of a 19 screen is negative. Lactic dehydrogenase was 150 serum ferritin was 85. 10/22/20 01:28 patient reassured of the clinical findings today with no signs of significant infection in particular COVID-19 screen is negative. I am going to place her on doxycycline 100 mg twice daily for 8 days for sinus infection. Patient is off work until the of this month and therefore not need a work note. Departure - Departure Time of Disposition: :29 Disposition: Home, Self-Care 01 Condition: Fair Clinical Impression: Upper respiratory tract infection Qualifiers: URI type: unspecified viral URI Qualified Code(s): J06.9 - Acute upper respiratory infection, unspecified Sinusitis Qualifiers: Sinusitis location: sphenoidal - Discharge Information *PRESCRIPTION DRUG MONITORING PROGRAM REVIEWED*: Not Applicable *COPY OF PRESCRIPTION DRUG MONITORING REPORT IN PATIENT GUME: Not Applicable Prescriptions: Doxycycline [Vibra-Tabs] 100 mg PO Q12HR #16 tab Ondansetron [Zofran] 4 mg BUCCAL Q6H PRN #5 tab PRN Reason: nausea or vomiting Instructions: Sinusitis, Adult, [id number] Referrals: Jenni Vazquez [employer] TECHNICIAN [Primary Care Provider] - Forms: ED Department Discharge Additional Instructions: Evaluation in the emergency room tonight in regards to sinus congestion or nasal congestion with associated loss of sense of taste and smell with associated mild sore throat and nonproductive cough all highly suggestive of possible COVID-19 illness. Associated loss of appetite and diarrhea. Lab test revealed a normal white blood cell count and all of the markers for COVID-19 illness came back negative and the COVID-19 viral screen also came back negative. You therefore have some other form of viral upper respiratory tract infection with sinus congestion. Suggest plenty of fluids such as Gatorade or Powerade even sip to maintain hydration. You did receive a liter of IV fluids while in the emergency department to provide rehydration. Suggest use of doxycycline antibiotic twice daily for the next 8 days for sinus infection. It will also help with any dental infection as you are having pain from left upper molar primarily. It also will not make diarrhea worse. Diarrhea sick can sometimes show up if we have not been eating cold starvation stools. Suggest using soda crackers and other cookies etc. May use Jam on white bread. Then advance to soup such as turkey rice or chicken noodle. Avoid all dairy products and no apple juice or grape juice until stools are formed back up. May use Zofran 4 mg under the tongue every 6 hours as necessary to relieve nausea. You were given a dose of an antinauseant in the ED which should be good for about 6 to 8 hours. First dose of doxycycline was given in the ED as well which she should take at home tonight after you have got a little bit of something in your stomach. Expect gradual improvement over the next 2 to 3 days. Follow-up with personal care physician if any further problems occur Sepsis Event Note (ED) - Evaluation Sepsis Screening Result: No Definite Risk - Focused Exam Vital Signs: Vital Signs Temp Pulse Resp BP Pulse Ox 10/21/20 23:15 37.0 C 95 18 118/73 95 - My Orders Last 24 Hours: My Active Orders 10/21/20 23:20 Orthostatic Vital Signs [RC] ASDIRECTED 10/21/20 23:35 EKG Documentation Completion [RC] STAT Chest 1V Frontal [CR] Stat 10/21/20 23:45 Dextrose 5%-Lactated Ringers 1,000 ml IV ASDIRECTED Ketorolac [Toradol] 30 mg IVPUSH ONETIME 10/22/20 01:27 Doxycycline [Vibramycin] 100 mg PO ONETIME ONE - Assessment/Plan Last 24 Hours: My Active Orders 10/21/20 23:20 Orthostatic Vital Signs [RC] ASDIRECTED 10/21/20 23:35 EKG Documentation Completion [RC] STAT Chest 1V Frontal [CR] Stat 10/21/20 23:45 Dextrose 5%-Lactated Ringers 1,000 ml IV ASDIRECTED Ketorolac [Toradol] 30 mg IVPUSH ONETIME 10/22/20 01:27 Doxycycline [Vibramycin] 100 mg PO ONETIME ONE
[2020-10-21] MEDS ORDERED: Dextrose 5%-Lactated Ringers 1,000 ML IV SCH (23:45)
[2020-10-21] MEDS ORDERED: Ketorolac 30 MG/ML SDV IVPUSH SCH (23:45)
[2020-10-22] MEDS ORDERED: Doxycycline 100 MG Cap PO ONE (01:27)
--- NOTE | 2020-10-22 09:38 | CR ---
Chest: Portable view of the chest was obtained. Comparison: Prior chest x-ray of 09/28/20. Heart size and mediastinum are normal. Lungs are clear with no acute parenchymal change. No discrete bony abnormality is appreciated. Impression: 1. Nothing acute is seen on portable chest x-ray. Diagnostic code #1
== END 2020-10-22 01:45 | disposition home or self-care (01) ==
LOC: JD.ED 23:05
DX: J01.30 Acute sphenoidal sinusitis, unspecified (principal); J45.909 Unspecified asthma, uncomplicated; E66.9 Obesity, unspecified; Z68.37 Body mass index [BMI] 37.0-37.9, adult; Z20.822 Contact with and (suspected) exposure to COVID-19; Z91.048 Other nonmedicinal substance allergy status; Z88.8 Allergy status to other drugs, medicaments and biological substances; Z91.011 Allergy to milk products; Z88.5 Allergy status to narcotic agent; Z79.899 Other long term (current) drug therapy
CPT/HCPCS: 36415; 71045; 80053; 82009; 82728; 83615; 83735; 84484; 84703; 85025; 85379; 86140; 87635; 93005; 96374; 99284; A9270; J1885; J7121; 93010; 99283; U0002

== ENCOUNTER 2020-10-31 11:54 | Emergency (ER) | payer BC ==
[2020-10-31] MEDS ORDERED: Sodium Chloride 0.9% 1,000 ML IV ONE (12:32)
[2020-10-31] MEDS ORDERED: Ondansetron 4 MG/2 ML SDV IVPUSH ONE (12:32)
[2020-10-31] MEDS ORDERED: Ketorolac 30 MG/ML SDV IVPUSH ONE (12:32)
[2020-10-31] MEDS ORDERED: Sodium Chloride 0.9% 10 ML Syringe FLUSH PRN (12:32)
--- NOTE | 2020-10-31 12:59 | EDM.PDOC ---
ED HPI GENERAL MEDICAL PROBLEM - General Chief Complaint: Cardiovascular Problem Stated Complaint: CHEST PAIN Time Seen by Provider: 10/31/20 12:20 Source of Information: Reports: Patient History Limitations: Reports: No Limitations - History of Present Illness INITIAL COMMENTS - FREE TEXT/NARRATIVE: 30-year-old female presents to the emergency department with complaints of chest pain and shortness of breath. Patient states that she was seen in the emergency department about 10 days ago with a similar complaint and was diagnosed with bronchitis and started on antibiotics. She took 8 days of antibiotics and states she did not feel any better with this. [facility] and [facility] told her today that she should come to the emergency department because she could have a pulmonary embolus. Patient is not a smoker, she does not take control, she does not have a clotting disorder that she is aware of, she is not sedentary, and she states that she was tested for Covid on her last visit to the emergency department and that was negative. Patient's O2 saturations are 99 to 100% on room air. It is highly unlikely that she has a PE. However patient states that for the last 12 days she has had diarrhea, and nausea. She states on her last visit to the emergency department she had loss of taste and smell however that has returned. She reports that she does have shortness of breath with exertion and significant chest discomfort with movement. She states it is significantly worse when taking a deep breath and patient did have significant discomfort with palpation to her chest wall. She states that her appetite has been significantly less over the course of the last 10 days as well. Mid-Sternal Chest Pain Score (Numeric/FACES): 8 - Related Data Allergies Allergy/AdvReac Type Severity Reaction Status Date / Time grass pollen Allergy Cannot Verified 10/31/20 12:12 Remember promethazine Allergy Rash Verified 10/31/20 12:12 cow milk Allergy Hives Uncoded 10/31/20 12:12 essential oils Allergy Anaphylactic Uncoded 10/31/20 12:12 Shock tylenol with codeine Allergy Vomiting Uncoded 10/31/20 12:12 Home Meds: Home Meds Albuterol [Proventil Neb Soln] 2.5 mg NEB ASDIRECTED 01/28/19 [History] Epi-Pen. 1 unit IM ONETIME PRN 01/28/19 [History] Desvenlafaxine Succinate [Pristiq] 25 mg PO DAILY 09/28/20 [History] QUEtiapine [SEROquel] 50 mg PO DAILY 09/28/20 [History] Doxycycline [Vibra-Tabs] 100 mg PO Q12HR #16 tab 10/22/20 [Rx] Past Medical History HEENT History: Reports: Impaired Vision Cardiovascular History: Reports: Other (See Below) Other Cardiovascular History: R AV heart block Respiratory History: Reports: Asthma, Sleep Apnea Gastrointestinal History: Reports: GERD, Irritable Bowel Syndrome [employer] History: Reports: Endometriosis Neurological History: Reports: Headaches, Chronic, Migraines Psychiatric History: Reports: ADHD, Anxiety, Depression, PTSD Endocrine/Metabolic History: Reports: Hypothyroidism, Obesity/BMI 30+, Other (See Below) Other Endocrine/Metabolic History: insulin resistent - Infectious Disease History Infectious Disease History: Reports: Chicken Pox - Past Surgical History HEENT Surgical History: Reports: Adenoidectomy, Oral Surgery, Tonsillectomy GI Surgical History: Reports: Colonoscopy, EGD Female Surgical History: Reports: Other (See Below) Musculoskeletal Surgical History: Reports: Other (See Below) Other Musculoskeletal Surgeries/Procedures:: R knee sx Social & Family History - Family History Family Medical History: No Pertinent Family History - Tobacco Use Tobacco Use Status *Q: Former Tobacco User Years of Tobacco use: 1 Packs/Tins Daily: 1 Used Tobacco, but Quit: Yes Month/Year Tobacco Last Used: 07/2020 - Caffeine Use Caffeine Use: Reports: Coffee, Energy Drinks, Soda, Tea - Recreational Drug Use Recreational Drug Use: No - Living Situation & Occupation Living situation: Reports: , with Spouse Occupation: Employed (Currently employed at [employer]) [facility] - Review of Systems Review Of Systems: See Below Constitutional: Reports: Decreased Appetite. Denies: Fever, Chills HEENT: Reports: Glasses Respiratory: Reports: Shortness of Breath, Pleuritic Chest Pain, Cough, Sputum. Denies: Wheezing Cardiovascular: Reports: Chest Pain, Dyspnea on Exertion. Denies: Edema, Orthopnea, Palpitations Endocrine: Reports: No Symptoms GI/Abdominal: Reports: Diarrhea, Decreased Appetite, Nausea. Denies: Abdominal Pain, Constipation, Vomiting : Reports: Frequency, Incontinence, Urgency Musculoskeletal: Reports: Other (generalized body aches) Skin: Reports: No Symptoms Neurological: Reports: No Symptoms Psychiatric: Reports: No Symptoms Hematologic/Lymphatic: Reports: No Symptoms Immunologic: Reports: No Symptoms ED EXAM, GENERAL - Physical Exam Exam: See Below General Appearance: Alert, WD/WN, No Apparent Distress Eye Exam: Bilateral Eye: PERRL Ears: Normal External Exam, Hearing Grossly Normal Nose: Normal Inspection Throat/Mouth: Normal Inspection, Normal Voice, No Airway Compromise Head: Atraumatic, Normocephalic Neck: Normal Inspection, Supple, Non-Tender Respiratory/Chest: No Respiratory Distress, Normal Breath Sounds, Decreased Breath Sounds. No: Chest Non-Tender (tender with palpation) Cardiovascular: Normal Peripheral Pulses, Regular Rate, Rhythm, No Edema, No Murmur Peripheral Pulses: 2+: Radial (L), Radial (R) GI/Abdominal: Normal Bowel Sounds, Soft, Non-Tender, No Distention (Female) Exam: Deferred Rectal (Female) Exam: Deferred Back Exam: Normal Inspection, Full Range of Motion Extremities: Normal Inspection, Normal Range of Motion, Non-Tender, No Pedal Edema, Normal Capillary Refill Neurological: Alert, Oriented, Normal Cognition, Normal Reflexes Psychiatric: Normal Affect, Normal Mood Skin Exam: Warm, Dry, Intact, Normal Color, No Rash Lymphatic: No Adenopathy #1 Interpretation EKG Date: 10/31/20 Time: 12:04 Rhythm: NSR Rate (Beats/Min): 82 [place]: Normal P-Wave: Present QRS: Normal ST-T: Normal QT: Normal Comparison: NA - No Prior EKG EKG Interpretation Comments: Per Dr. Thomas interpretation: no acute changes, normal EKG Course - Vital Signs Text/Narrative:: I suspect that the patient's chest pain is pleuritic however I have ordered an EKG, chest x-ray and lab work. I also suspect that the patient did have a false negative test to Covid and that the symptoms described are due to Covid. So I have ordered a CBC, CMP, magnesium, CRP, D-dimer, ferritin, LDH. Patient is likely dehydrated due to having significant diarrhea over the course of 12 days and has had a decreased appetite so has not had much in the way of p.o. intake. I have also ordered Toradol for the discomfort and Zofran for the nausea. Urinalysis has been ordered as well as patient states she has had some urinary incontinence in the last 12 days as well. Last Recorded V/S: Last Vital Signs Temp 97.7 F 10/31/20 12:07 Pulse 85 10/31/20 12:07 Resp 15 10/31/20 12:07 BP 130/84 10/31/20 12:07 Pulse Ox 98 10/31/20 12:07 - Orders/Labs/Meds Orders: Active Orders 24 hr Category Date Time Status EKG Documentation Completion [RC] STAT Care 10/31/20 12:31 Active CORONAVIRUS COVID-19 JOSH [MOLEC] Stat Lab 10/31/20 13:52 Received Sodium Chloride 0.9% [Saline Flush] Med 10/31/20 12:32 Active 10 ml FLUSH ASDIRECTED PRN Saline Lock Insert [OM.PC] Stat Oth 10/31/20 12:32 Ordered Medication Orders Sodium Chloride (Saline Flush) 10 ml FLUSH ASDIRECTED PRN PRN Reason: Keep Vein Open Last Admin: 10/31/20 12:58 Dose: 10 ml Documented by: WANDA Labs: Laboratory Tests 10/31/20 10/31/20 10/31/20 Range/Units 12:31 12:55 12:55 WBC 13.98 H (3.98-10.04) K/mm3 RBC 4.79 (3.98-5.22) M/mm3 Hgb 14.6 (11.2-15.7) gm/dl Hct 43.4 (34.1-44.9) % MCV 90.6 (79.4-94.8) fl MCH 30.5 (25.6-32.2) pg MCHC 33.6 (32.2-35.5) g/dl RDW Std Deviation 40.0 (36.4-46.3) fL Plt Count 312 (182-369) K/mm3 MPV 9.6 (9.4-12.3) fl Neutrophils % (Manual) 68 H (40-60) % Band Neutrophils % 0 (0-10) % Lymphocytes % (Manual) 22 (20-40) % Atypical Lymphs % 0 % Monocytes % (Manual) 8 (2-10) % Eosinophils % (Manual) 2 (0.7-5.8) % Basophils % (Manual) 0 L (0.1-1.2) Platelet Estimate Adequate RBC Morph Comment Normal D-Dimer, Quantitative 0.55 H (0.19-0.50) mg/L Sodium (136-145) mEq/L Potassium (3.5-5.1) mEq/L Chloride (98-107) mEq/L Carbon Dioxide (21-32) mEq/L Anion Gap (5-15) BUN (7-18) mg/dL Creatinine (0.55-1.02) mg/dL Est Cr Clr Drug Dosing mL/min Estimated GFR (MDRD) (>60) mL/min BUN/Creatinine Ratio (14-18) Glucose (74-106) mg/dL Calcium (8.5-10.1) mg/dL Magnesium (1.8-2.4) mg/dl Ferritin (8-252) ng/ml Total Bilirubin (0.2-1.0) mg/dL AST (15-37) U/L ALT (14-59) U/L Alkaline Phosphatase (46-116) U/L Lactate Dehydrogenase (81-234) U/L Troponin I (0.00-0.056) ng/mL C-Reactive Protein 1.0 (<1.0) mg/dL Total Protein (6.4-8.2) g/dl Albumin (3.4-5.0) g/dl Globulin gm/dL Albumin/Globulin Ratio (1-2) Urine Color (Yellow) Urine Appearance (Clear) Urine pH (5.0-8.0) Ur Specific [place] (1.005-1.030) Urine Protein (Negative) Urine Glucose (UA) (Negative) Urine Ketones (Negative) Urine Occult Blood (Negative) Urine Nitrite (Negative) Urine Bilirubin (Negative) Urine Urobilinogen (0.2-1.0) Ur Leukocyte Esterase (Negative) 10/31/20 10/31/20 10/31/20 Range/Units 12:55 12:55 13:11 WBC (3.98-10.04) K/mm3 RBC (3.98-5.22) M/mm3 Hgb (11.2-15.7) gm/dl Hct (34.1-44.9) % MCV (79.4-94.8) fl MCH (25.6-32.2) pg MCHC (32.2-35.5) g/dl RDW Std Deviation (36.4-46.3) fL Plt Count (182-369) K/mm3 MPV (9.4-12.3) fl Neutrophils % (Manual) (40-60) % Band Neutrophils % (0-10) % Lymphocytes % (Manual) (20-40) % Atypical Lymphs % % Monocytes % (Manual) (2-10) % Eosinophils % (Manual) (0.7-5.8) % Basophils % (Manual) (0.1-1.2) Platelet Estimate RBC Morph Comment D-Dimer, Quantitative (0.19-0.50) mg/L Sodium 141 (136-145) mEq/L Potassium 3.8 (3.5-5.1) mEq/L Chloride 104 (98-107) mEq/L Carbon Dioxide 27 (21-32) mEq/L Anion Gap 13.8 (5-15) BUN 8 (7-18) mg/dL Creatinine 0.8 (0.55-1.02) mg/dL Est Cr Clr Drug Dosing 77.59 mL/min Estimated GFR (MDRD) > 60 (>60) mL/min BUN/Creatinine Ratio 10.0 L (14-18) Glucose 82 (74-106) mg/dL Calcium 9.3 (8.5-10.1) mg/dL Magnesium 2.1 (1.8-2.4) mg/dl Ferritin 119 (8-252) ng/ml Total Bilirubin 0.3 (0.2-1.0) mg/dL AST 13 L (15-37) U/L ALT 25 (14-59) U/L Alkaline Phosphatase 83 (46-116) U/L Lactate Dehydrogenase 177 (81-234) U/L Troponin I < 0.017 (0.00-0.056) ng/mL C-Reactive Protein (<1.0) mg/dL Total Protein 7.9 (6.4-8.2) g/dl Albumin 3.6 (3.4-5.0) g/dl Globulin 4.3 gm/dL Albumin/Globulin Ratio 0.8 L (1-2) Urine Color Light yellow (Yellow) Urine Appearance Clear (Clear) Urine pH 7.5 (5.0-8.0) Ur Specific [place] 1.025 (1.005-1.030) Urine Protein Negative (Negative) Urine Glucose (UA) Negative (Negative) Urine Ketones Negative (Negative) Urine Occult Blood Negative (Negative) Urine Nitrite Negative (Negative) Urine Bilirubin Negative (Negative) Urine Urobilinogen 0.2 (0.2-1.0) Ur Leukocyte Esterase Negative (Negative) Meds: Medications Generic Name Dose Route Start Last Admin Trade Name Travis PRN Reason Stop Dose Admin Sodium Chloride 10 ml 10/31/20 12:32 10/31/20 12:58 Saline Flush FLUSH 10 ml ASDIRECTED PRN Administration Keep Vein Open Discontinued Medications Generic Name Dose Route Start Last Admin Trade Name Travis PRN Reason Stop Dose Admin Sodium Chloride 1,000 mls @ 999 mls/hr 10/31/20 12:32 10/31/20 12:58 Normal Saline IV 10/31/20 13:32 999 mls/hr ONETIME ONE Administration Ketorolac Tromethamine 30 mg 10/31/20 12:32 10/31/20 12:58 Toradol IVPUSH 10/31/20 12:33 30 mg ONETIME ONE Administration Ondansetron HCl 4 mg 10/31/20 12:32 10/31/20 12:58 Zofran IVPUSH 10/31/20 12:33 4 mg ONETIME ONE Administration - Re-Assessments/Exams Free Text/Narrative Re-Assessment/Exam: 10/31/20 13:55 Portable chest x-ray radiology impression: Nothing acute is appreciated on portable chest x-ray. 10/31/20 14:17 Urinalysis is completely unremarkable. 10/31/20 14:19 Labs reveal a WBC of 13.98, neutrophil percentage 68, D-dimer 0.55, sodium 141, potassium 3.8, anion gap 13.8, BUN 8, creatinine 0.8, GFR greater than 60, magnesium 2.1, ferritin 119, LDH 177, troponin less than 0.017, C-reactive protein 1.0, I feel the white count is elevated due to pleuritic type pain and chest wall pain. D-dimer is only slightly elevated above normal and I really do not feel like the patient has a PE as her O2 saturations are 98 to 100% on room air. Patient also does have very significant discomfort when taking in a deep breath and palpating her chest wall. I discussed this case with Dr. Thomas who does agree that a CT of the chest is not warranted as the risks significantly outweigh the benefits. Patient also does not have any lower leg discomfort to suggest the possibility of a blood clot or PE.. Patient will be discharged to home, recommend that she takes ibuprofen 600 mg every 6 hours for the next 48 hours. Patient states that she is allergic to Aleve as it causes her to have inflammation in her abdomen. Departure - Departure Time of Disposition: 14:33 Disposition: Home, Self-Care 01 Condition: Good Clinical Impression: Atypical chest pain Instructions: Shortness of Breath, Adult, [id number], Chest Wall Pain, [id number] Referrals: Jenni Vazquez [employer] [Primary Care Provider] - Forms: ED Department Discharge Additional Instructions: You were seen in the emergency department with complaints of chest pain and shortness of breath. Chest x-ray and electrocardiogram were unremarkable. Lab work revealed that you did have a very slightly elevated white blood cell count but I feel that this is due to your chest wall discomfort. On assessment you are found to be very tender to touch all along your chest wall and you did complain of pain with deep breathing. You were also checked for Covid and this was not resulted out at the time that you left however the lab work that accompanied your work-up do not show any significant findings for Covid. Your urinalysis was completely unremarkable. You do not have an infection in your bladder. Recommend that you take ibuprofen 600 mg every 6 hours for the next 48 hours and use ice or heat for comfort to your chest. If you are not better by Tuesday please follow-up with your primary care physician in the clinic. Should your condition worsen or change please return to the emergency department Sepsis Event Note (ED) - Evaluation Sepsis Screening Result: No Definite Risk - Focused Exam Vital Signs: Vital Signs Temp Pulse Resp BP Pulse Ox 10/31/20 12:07 97.7 F 85 15 130/84 98 - My Orders Last 24 Hours: My Active Orders 10/31/20 12:31 EKG Documentation Completion [RC] STAT 10/31/20 12:32 Sodium Chloride 0.9% [Saline Flush] 10 ml FLUSH ASDIRECTED PRN Saline Lock Insert [OM.PC] Stat 10/31/20 13:52 CORONAVIRUS COVID-19 JOSH [MOLEC] Stat - Assessment/Plan Last 24 Hours: My Active Orders 10/31/20 12:31 EKG Documentation Completion [RC] STAT 10/31/20 12:32 Sodium Chloride 0.9% [Saline Flush] 10 ml FLUSH ASDIRECTED PRN Saline Lock Insert [OM.PC] Stat 10/31/20 13:52 CORONAVIRUS COVID-19 JOSH [MOLEC] Stat
--- NOTE | 2020-10-31 13:45 | CR ---
Chest: Portable view of the chest was obtained. Comparison: Prior chest x-ray of 10/21/20. Heart size and mediastinum are normal. Lungs are clear with no acute parenchymal change. Osseous structures are within normal limits for the patient's age. Impression: 1. Nothing acute is seen on portable chest x-ray. Diagnostic code #1
== END 2020-10-31 14:48 | disposition home or self-care (01) ==
LOC: JD.ED 11:54
DX: R07.89 Other chest pain (principal); J45.909 Unspecified asthma, uncomplicated; E66.9 Obesity, unspecified; Z68.37 Body mass index [BMI] 37.0-37.9, adult; Z91.048 Other nonmedicinal substance allergy status; Z91.011 Allergy to milk products; Z88.5 Allergy status to narcotic agent; Z87.891 Personal history of nicotine dependence; Z79.899 Other long term (current) drug therapy; Z20.822 Contact with and (suspected) exposure to COVID-19
CPT/HCPCS: 36415; 71045; 80053; 81003; 82728; 83615; 83735; 84484; 85007; 85027; 85379; 86140; 87635; 93005; 96374; 96375; 99285; J1885; J2405; J7030; 93010; 99284; U0002

== ENCOUNTER 2020-11-04 20:53 | Emergency (ER) | payer BC ==
[2020-11-04] MEDS ORDERED: Sodium Chloride 0.9% 10 ML Syringe FLUSH PRN (21:22)
[2020-11-04] MEDS ORDERED: Ondansetron 4 MG/2 ML SDV IVPUSH ONE (21:22)
[2020-11-04] MEDS ORDERED: Sodium Chloride 0.9% 1,000 ML IV STA (21:22)
--- NOTE | 2020-11-04 21:29 | EDM.PDOC ---
ED HPI GENERAL MEDICAL PROBLEM - General Chief Complaint: Gastrointestinal Problem Stated Complaint: VOMITING Time Seen by Provider: 11/04/20 21:15 Source of Information: Reports: Patient History Limitations: Reports: No Limitations - History of Present Illness INITIAL COMMENTS - FREE TEXT/NARRATIVE: The patient presents with nausea, vomiting and lightheadedness. The patient has not felt well for about 3 weeks. She was seen here a few days ago. She was having chest pains and not feeling well. She did take some ibuprofen and the chest pains went away. Now she is having nausea and vomiting. She cannot keep anything down. She has no diarrhea. She has no dysuria. She has some chills but no fever. She has no chest pain, shortness of breath of cough. She does not think she is . She denies abdominal pain. She does get lightheaded with standing and she did pass out when she got up earlier. She still has her gallbladder and appendix. Onset: Gradual Duration: Hour(s): Improves with: Reports: None Worsens with: Reports: None Associated Symptoms: Reports: Fever/Chills, Nausea/Vomiting. Denies: Chest Pain, Cough, Headaches, Shortness of Breath - Related Data Allergies Allergy/AdvReac Type Severity Reaction Status Date / Time grass pollen Allergy Cannot Verified 11/04/20 21:06 Remember promethazine Allergy Rash Verified 11/04/20 21:06 cow milk Allergy Hives Uncoded 11/04/20 21:06 essential oils Allergy Anaphylactic Uncoded 11/04/20 21:06 Shock tylenol with codeine Allergy Vomiting Uncoded 11/04/20 21:06 Home Meds: Home Meds Albuterol [Proventil Neb Soln] 2.5 mg NEB ASDIRECTED 01/28/19 [History] Epi-Pen. 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: Endometriosis Neurological History: Reports: Headaches, Chronic, Migraines Psychiatric History: Reports: ADHD, Anxiety, Depression, PTSD Endocrine/Metabolic History: Reports: Hypothyroidism, Obesity/BMI 30+, Other (See Below) Other Endocrine/Metabolic History: insulin resistent - Infectious Disease History Infectious Disease History: Reports: Chicken Pox - Past Surgical History HEENT Surgical History: Reports: Adenoidectomy, Oral Surgery, Tonsillectomy GI Surgical History: Reports: Colonoscopy, EGD Female Surgical History: Reports: Other (See Below) Musculoskeletal Surgical History: Reports: Other (See Below) Other Musculoskeletal Surgeries/Procedures:: R knee sx Social & Family History - Family History Family Medical History: No Pertinent Family History - Tobacco Use Tobacco Use Status *Q: Never Tobacco User - Caffeine Use Caffeine Use: Reports: Coffee, Energy Drinks, Soda, Tea - Recreational Drug Use Recreational Drug Use: No - Living Situation & Occupation Living situation: Reports: , with Spouse Occupation: Employed (Currently employed at [employer]) ED ROS GENERAL - Review of Systems Review Of Systems: See Below Constitutional: Reports: Chills. Denies: Fever HEENT: Reports: No Symptoms Respiratory: Reports: No Symptoms Cardiovascular: Reports: No Symptoms, Lightheadedness Endocrine: Reports: No Symptoms GI/Abdominal: Reports: Nausea, Vomiting. Denies: Abdominal Pain, Diarrhea : Reports: No Symptoms Musculoskeletal: Reports: No Symptoms Skin: Reports: No Symptoms ED EXAM, GI/ABD - Physical Exam Exam: See Below Exam Limited By: No Limitations General Appearance: Alert, No Apparent Distress Ears: Normal External Exam Nose: Normal Inspection Head: Atraumatic, Normocephalic Neck: Normal Inspection Respiratory/Chest: No Respiratory Distress, Lungs Clear, Normal Breath Sounds Cardiovascular: Regular Rate, Rhythm, No Edema, No Murmur GI/Abdominal Exam: Soft, Non-Tender, No Organomegaly, No Mass Back Exam: Normal Inspection Extremities: Normal Inspection Course - Vital Signs Last Recorded V/S: Last Vital Signs Temp 96.9 F 11/04/20 21:00 Pulse 82 11/04/20 21:00 Resp 16 11/04/20 21:00 BP 130/87 11/04/20 21:00 Pulse Ox 95 11/04/20 21:00 - Orders/Labs/Meds Orders: Active Orders 24 hr Category Date Time Status Peripheral IV Care [RC] . DIRECTED Care 11/04/20 21:22 Active Sodium Chloride 0.9% [Saline Flush] Med 11/04/20 21:22 Active 10 ml FLUSH ASDIRECTED PRN ED Antiemetic Medication Reflex [OM.PC] Stat Oth 11/04/20 21:22 Ordered Peripheral IV Insertion Adult [OM.PC] Stat Oth 11/04/20 21:22 Ordered Medication Orders Sodium Chloride (Saline Flush) 10 ml FLUSH ASDIRECTED PRN PRN Reason: Keep Vein Open Last Admin: 11/04/20 21:45 Dose: 10 ml Documented by: WANDA Labs: Laboratory Tests 11/04/20 11/04/20 11/04/20 Range/Units 21:19 21:19 21:19 WBC 11.69 H (3.98-10.04) K/mm3 RBC 4.76 (3.98-5.22) M/mm3 Hgb 14.5 (11.2-15.7) gm/dl Hct 43.0 (34.1-44.9) % MCV 90.3 (79.4-94.8) fl MCH 30.5 (25.6-32.2) pg MCHC 33.7 (32.2-35.5) g/dl RDW Std Deviation 39.8 (36.4-46.3) fL Plt Count 262 (182-369) K/mm3 MPV 9.5 (9.4-12.3) fl Neut % (Auto) 82.2 H (34.0-71.1) % Lymph % (Auto) 12.6 L (19.3-51.7) % [place] % (Auto) 4.4 L (4.7-12.5) % Eos % (Auto) 0.3 L (0.7-5.8) Baso % (Auto) 0.2 (0.1-1.2) % Neut # (Auto) 9.61 H (1.56-6.13) K/mm3 Lymph # (Auto) 1.47 (1.18-3.74) K/mm3 [place] # (Auto) 0.52 H (0.24-0.36) K/mm3 Eos # (Auto) 0.04 (0.04-0.36) K/mm3 Baso # (Auto) 0.02 (0.01-0.08) K/mm3 Manual Slide Review Normal smear Sodium 143 (136-145) mEq/L Potassium 3.9 (3.5-5.1) mEq/L Chloride 105 (98-107) mEq/L Carbon Dioxide 27 (21-32) mEq/L Anion Gap 14.9 (5-15) BUN 14 (7-18) mg/dL Creatinine 0.8 (0.55-1.02) mg/dL Est Cr Clr Drug Dosing 77.59 mL/min Estimated GFR (MDRD) > 60 (>60) mL/min BUN/Creatinine Ratio 17.5 (14-18) Glucose 102 (74-106) mg/dL Calcium 8.8 (8.5-10.1) mg/dL Total Bilirubin 0.6 (0.2-1.0) mg/dL AST 18 (15-37) U/L ALT 30 (14-59) U/L Alkaline Phosphatase 56 (46-116) U/L Total Protein 7.3 (6.4-8.2) g/dl Albumin 3.4 (3.4-5.0) g/dl Globulin 3.9 gm/dL Albumin/Globulin Ratio 0.9 L (1-2) Lipase 61 L (73-393) U/L HCG, Qual Negative (NEGATIVE) Urine Color (Yellow) Urine Appearance (Clear) Urine pH (5.0-8.0) Ur Specific [place] (1.005-1.030) Urine Protein (Negative) Urine Glucose (UA) (Negative) Urine Ketones (Negative) Urine Occult Blood (Negative) Urine Nitrite (Negative) Urine Bilirubin (Negative) Urine Urobilinogen (0.2-1.0) Ur Leukocyte Esterase (Negative) Urine RBC (0-5) /hpf Urine WBC (0-5) /hpf Ur Squamous Epith Cells (0-5) /hpf Urine Bacteria (FEW) /hpf Urine Mucus (FEW) /hpf 11/04/20 Range/Units 21:47 WBC (3.98-10.04) K/mm3 RBC (3.98-5.22) M/mm3 Hgb (11.2-15.7) gm/dl Hct (34.1-44.9) % MCV (79.4-94.8) fl MCH (25.6-32.2) pg MCHC (32.2-35.5) g/dl RDW Std Deviation (36.4-46.3) fL Plt Count (182-369) K/mm3 MPV (9.4-12.3) fl Neut % (Auto) (34.0-71.1) % Lymph % (Auto) (19.3-51.7) % [place] % (Auto) (4.7-12.5) % Eos % (Auto) (0.7-5.8) Baso % (Auto) (0.1-1.2) % Neut # (Auto) (1.56-6.13) K/mm3 Lymph # (Auto) (1.18-3.74) K/mm3 [place] # (Auto) (0.24-0.36) K/mm3 Eos # (Auto) (0.04-0.36) K/mm3 Baso # (Auto) (0.01-0.08) K/mm3 Manual Slide Review Sodium (136-145) mEq/L Potassium (3.5-5.1) mEq/L Chloride (98-107) mEq/L Carbon Dioxide (21-32) mEq/L Anion Gap (5-15) BUN (7-18) mg/dL Creatinine (0.55-1.02) mg/dL Est Cr Clr Drug Dosing mL/min Estimated GFR (MDRD) (>60) mL/min BUN/Creatinine Ratio (14-18) Glucose (74-106) mg/dL Calcium (8.5-10.1) mg/dL Total Bilirubin (0.2-1.0) mg/dL AST (15-37) U/L ALT (14-59) U/L Alkaline Phosphatase (46-116) U/L Total Protein (6.4-8.2) g/dl Albumin (3.4-5.0) g/dl Globulin gm/dL Albumin/Globulin Ratio (1-2) Lipase (73-393) U/L HCG, Qual (NEGATIVE) Urine Color Yellow (Yellow) Urine Appearance Clear (Clear) Urine pH 6.0 (5.0-8.0) Ur Specific [place] > or = 1.030 (1.005-1.030) Urine Protein Trace H (Negative) Urine Glucose (UA) Negative (Negative) Urine Ketones Negative (Negative) Urine Occult Blood 2+ H (Negative) Urine Nitrite Negative (Negative) Urine Bilirubin Negative (Negative) Urine Urobilinogen 0.2 (0.2-1.0) Ur Leukocyte Esterase Trace H (Negative) Urine RBC 0-5 (0-5) /hpf Urine WBC 0-5 (0-5) /hpf Ur Squamous Epith Cells 0-5 (0-5) /hpf Urine Bacteria Few (FEW) /hpf Urine Mucus Few (FEW) /hpf Meds: Medications Generic Name Dose Route Start Last Admin Trade Name Freagusto PRN Reason Stop Dose Admin Sodium Chloride 10 ml 11/04/20 21:22 11/04/20 21:45 Saline Flush FLUSH 10 ml ASDIRECTED PRN Administration Keep Vein Open Discontinued Medications Generic Name Dose Route Start Last Admin Trade Name Travis PRN Reason Stop Dose Admin Diphenhydramine HCl 50 mg 11/04/20 22:27 11/04/20 22:34 Benadryl IVPUSH 11/04/20 22:28 50 mg ONETIME ONE Administration Sodium Chloride 1,000 mls @ 1,000 mls/hr 11/04/20 21:22 11/04/20 21:30 Normal Saline IV 11/04/20 22:21 1,000 mls/hr .BOLUS STA Administration Lactated Ringer's 1,000 mls @ 1,000 mls/hr 11/04/20 22:26 11/04/20 22:38 Ringers, Lactated IV 11/04/20 23:25 1,000 mls/hr .BOLUS ONE Administration Metoclopramide HCl 10 mg 11/04/20 22:27 11/04/20 22:32 Reglan IVPUSH 11/04/20 22:28 10 mg ONETIME ONE Administration Ondansetron HCl 4 mg 11/04/20 21:22 11/04/20 21:30 Zofran IVPUSH 11/04/20 21:23 4 mg ONETIME ONE Administration - Re-Assessments/Exams Free Text/Narrative Re-Assessment/Exam: 11/04/20 21:29 I ordered an IV NS 1L bolus, zofran 4mg IV, labs and UA. 11/04/20 23:14 Her WBC was slightly elevated at 11.69. Her CMP looks good. Her lipase is low at 61. Her HCG is negative. Her UA shows no UTI. She still had nausea so I ordered another bolus and I ordered 1L of LR, reglan 10mg IV and benadryl 50mg IV. 11/04/20 23:35 She feels better now and she is actually sleeping. I will discharge her with some zofran. Departure - Departure Time of Disposition: 23:35 Disposition: Home, Self-Care 01 Condition: Good Clinical Impression: Lightheaded Nausea & vomiting Qualifiers: Vomiting type: unspecified Vomiting Intractability: non-intractable Qualified Code(s): R11.2 - Nausea with vomiting, unspecified - Discharge Information *PRESCRIPTION DRUG MONITORING PROGRAM REVIEWED*: Not Applicable *COPY OF PRESCRIPTION DRUG MONITORING REPORT IN PATIENT GUME: Not Applicable Referrals: Jenni Vazquez NP [Primary Care Provider] - 1 Week Forms: ED Department Discharge Additional Instructions: Drink plenty of fluids. Take the zofran every 6 hours as needed. Advance your diet as tolerated. Follow up with Miriam Vazquez within a week. Please return if you are worse. Sepsis Event Note (ED) - Evaluation Sepsis Screening Result: No Definite Risk - Focused Exam Vital Signs: Vital Signs Temp Pulse Resp BP Pulse Ox 11/04/20 21:00 96.9 F 82 16 130/87 95 - My Orders Last 24 Hours: My Active Orders 11/04/20 21:22 Peripheral IV Care [RC] . DIRECTED Sodium Chloride 0.9% [Saline Flush] 10 ml FLUSH ASDIRECTED PRN ED Antiemetic Medication Reflex [OM.PC] Stat Peripheral IV Insertion Adult [OM.PC] Stat - Assessment/Plan Last 24 Hours: My Active Orders 11/04/20 21:22 Peripheral IV Care [RC] . DIRECTED Sodium Chloride 0.9% [Saline Flush] 10 ml FLUSH ASDIRECTED PRN ED Antiemetic Medication Reflex [OM.PC] Stat Peripheral IV Insertion Adult [OM.PC] Stat
[2020-11-04] MEDS ORDERED: Lactated Ringers 1,000 ML IV ONE (22:26)
[2020-11-04] MEDS ORDERED: diphenhydrAMINE 50 MG/ML SDV IVPUSH ONE (22:27)
[2020-11-04] MEDS ORDERED: Metoclopramide 10 MG/2 ML SDV IVPUSH ONE (22:27)
== END 2020-11-04 23:46 | disposition home or self-care (01) ==
LOC: JD.ED 20:53
DX: R42 Dizziness and giddiness (principal); R11.2 Nausea with vomiting, unspecified; D72.829 Elevated white blood cell count, unspecified; J45.909 Unspecified asthma, uncomplicated; E66.9 Obesity, unspecified; Z68.38 Body mass index [BMI] 38.0-38.9, adult; Z79.899 Other long term (current) drug therapy; Z91.048 Other nonmedicinal substance allergy status; Z88.8 Allergy status to other drugs, medicaments and biological substances; Z91.011 Allergy to milk products; Z91.018 Allergy to other foods; Z88.5 Allergy status to narcotic agent
CPT/HCPCS: 36415; 80053; 81001; 83690; 84703; 85025; 96374; 96375; 99284; 99284-25; J1200; J2405; J2765; J7030; J7120

== ENCOUNTER 2021-03-26 19:53 | Emergency (ER) | payer SELFPAY ==
[2021-03-26] MEDS ORDERED: Proparacaine 0.5% Ophth Soln 15 ML Bottle EYELF STA (20:19)
[2021-03-26] MEDS ORDERED: Fluorescein 1 MG Ophth Strip EYELF ONE (20:20)
[2021-03-26] MEDS ORDERED: Erythromycin Base 0.5% Ophth Oint 1 GM Tube EYELF STA (20:40)
--- NOTE | 2021-03-26 20:46 | EDM.PDOC ---
ED HPI GENERAL MEDICAL PROBLEM - General Chief Complaint: Eye Problems Stated Complaint: EYE PROBLEM Time Seen by Provider: 03/26/21 20:10 Source of Information: Reports: Patient, Significant Other (Boyfriend) History Limitations: Reports: No Limitations - History of Present Illness INITIAL COMMENTS - FREE TEXT/NARRATIVE: Ms. Hale is a pleasant 31-year-old woman who now presents to the ED after developing a foreign body sensation in her left eye around 19:45 this evening. She states that she was simply walking at the time. She washed her left eye with her boyfriend's Visine, but the foreign body sensation persists. She had a visual changes or photophobia. No prior left eye injury. Here in the ED, the patient is found to be hemodynamically stable, afebrile, saturating 95% on room air. She appears to be relatively comfortable, seated on the gurney. Prior to this evening, the patient denies having a recent fever, chills, sore throat, ear pain, nasal or sinus congestion, cough, dyspnea, chest pain, palpitations, nausea, vomiting, constipation, diarrhea, abdominal pain, urinary symptoms, recent weight gain or weight loss, recent bloody bowel movements or b lack bowel movements, recent joint aches, headaches, or rashes. The patient's PCP is Jenni Vazquez NP. Left Eye Pain Score (Numeric/FACES): 6 - Related Data Allergies Allergy/AdvReac Type Severity Reaction Status Date / Time grass pollen Allergy Severe Cannot Verified 03/26/21 20:08 Remember latex Allergy Severe Hives Verified 03/26/21 20:08 promethazine Allergy Severe Rash Verified 03/26/21 20:08 cow milk Allergy Severe Hives Uncoded 03/26/21 20:08 essential oils Allergy Severe Anaphylactic Uncoded 03/26/21 20:08 Shock tylenol with codeine AdvReac Severe Vomiting Uncoded 03/26/21 20:08 Home Meds: Home Meds Albuterol [Proventil Neb Soln] 2.5 mg NEB ASDIRECTED 01/28/19 [History] Epi-Pen. 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: Endometriosis (laparoscopy-proven) Psychiatric History: Reports: Depression (untreated), PTSD (untreated) Endocrine/Metabolic History: Reports: Obesity/BMI 30+, Other (See Below) (Prediabetes) - Infectious Disease History Infectious Disease History: Reports: Chicken Pox - Past Surgical History HEENT Surgical History: Reports: Adenoidectomy, Oral Surgery (dental extractons), Tonsillectomy GI Surgical History: Reports: Colonoscopy (x 3), EGD (x 2) Female Surgical History: Reports: Other (See Below) (Exploratory laparoscopy for endometriosis x 2) Musculoskeletal Surgical History: Reports: Other (See Below) (Right patella realignment) Social & Family History - Tobacco Use Years of Tobacco use: 11 Packs/Tins Daily: 0.1 Packs/Tins Daily Comment: Quit 2019 - Caffeine Use Caffeine Use: Reports: Coffee, Energy Drinks, Soda, Tea - Alcohol Use Alcohol Use History: Yes Alcohol Use Frequency: Socially - Recreational Drug Use Recreational Drug Use: Yes Drug Use in Last 12 Months: Yes Recreational Drug Type: Reports: Marijuana/Hashish - Living Situation & Occupation Living situation: Reports: (), Other (with friends) 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 ED EXAM GENERAL W FULL EYE - Physical Exam Exam: See Below Exam Limited By: No Limitations General Appearance: Alert, WD/WN, No Apparent Distress Eyelids: Left: Lid Everted for Exam, Bilateral: Normal Appearance Conjunctiva & Sclera: Right: Normal Appearance, Left: Injected Cornea Exam: Left: Examined with Flourescein, Bilateral: Normal Appearance Extraocular Movements: Bilateral: Intact Pupils: Normal Accommodation Pupillary Size: Bilateral: 5 mm Pupillary Reaction: Bilateral: Brisk Anterior Chamber: Bilateral: Normal Appearance Course - Vital Signs Last Recorded V/S: Last Vital Signs Temp 36.7 C 03/26/21 20:06 Pulse 84 03/26/21 20:06 Resp 16 03/26/21 20:06 BP 132/86 03/26/21 20:06 Pulse Ox 95 03/26/21 20:06 - Orders/Labs/Meds Meds: Medications Discontinued Medications Generic Name Dose Route Start Last Admin Trade Name Freq PRN Reason Stop Dose Admin Erythromycin 1 gm 03/26/21 20:40 03/26/21 20:47 Erythromycin Base 0.5% Ophth Oint 1 Gm Tube EYELF 03/26/21 20:41 1 applic ONETIME STA Administration Fluorescein Sodium 1 mg 03/26/21 20:20 03/26/21 20:32 Fluorescein 1 Mg Ophth Strip EYELF 03/26/21 20:21 1 mg ONETIME ONE Administration Proparacaine HCl 1 ml 03/26/21 20:19 03/26/21 20:32 Proparacaine 0.5% Ophth Soln 15 Ml Bottle EYELF 03/26/21 20:20 1 drop ONETIME STA Administration - Re-Assessments/Exams Free Text/Narrative Re-Assessment/Exam: 03/26/21 20:41 As above, the patient developed a foreign body sensation to her left eye around 19:45 this evening. She flushed her eye with her boyfriend's Visine, without improvement in her symptoms. On examination, no foreign body or globe injury was seen. After proparacaine and fluorescein were instilled into her left eye, no conjunctival injury was seen under Willis lamp. Under slit-lamp examination, again, no abnormality was found. I suspect that the patient probably did have a foreign body in her left eye, but she successfully removed it, leaving no visible trace. Going forward, I will have Tanya BENAVIDES instill some erythromycin ointment into her left eye, show her how to do it, and give her the tube. The patient can instill this up to six times a day to give her some relief. If she still has eye discomfort after 3 days, she needs to follow-up with an eye doctor. Departure - Departure Time of Disposition: 20:43 Disposition: Home, Self-Care 01 Condition: Good Clinical Impression: Sensation of foreign body in eye - Discharge Information *PRESCRIPTION DRUG MONITORING PROGRAM REVIEWED*: Not Applicable *COPY OF PRESCRIPTION DRUG MONITORING REPORT IN PATIENT GUME: Not Applicable Instructions: Eye Foreign Body, [id number] Referrals: Jenni Vazquez STUDY DIRECTOR [Primary Care Provider] - Forms: ED Department Discharge Additional Instructions: You were seen in the emergency room after developing the sensation of a foreign body in your left eye this evening. On examination with fluorescein under Willis lamp and slit lamp, no foreign body or corneal injury was found. Based on your history and physical examination, it is most likely that you did have a foreign body to your left eye, but that you successfully removed it on your own. Your nurse instilled some erythromycin ointment into your left eye and showed you how to do it. You may instill a 1 cm ribbon of erythromycin into your lower eyelid up to six times a day, as needed for discomfort. If you still have left eye discomfort after 3 days, we recommend that you follow-up with an eye doctor. If any other problems, please do not hesitate to return to the ER. Sepsis Event Note (ED) - Evaluation Sepsis Screening Result: No Definite Risk - Focused Exam Vital Signs: Vital Signs Temp Pulse Resp BP Pulse Ox 03/26/21 20:06 36.7 C 84 16 132/86 95
== END 2021-03-26 20:50 | disposition home or self-care (01) ==
LOC: JD.ED 19:53
DX: T15.92XA Foreign body on external eye, part unspecified, left eye, initial encounter (principal); E66.9 Obesity, unspecified; Z68.30 Body mass index [BMI] 30.0-30.9, adult; Z91.040 Latex allergy status; Z91.011 Allergy to milk products; Z91.09 Other allergy status, other than to drugs and biological substances; Z88.5 Allergy status to narcotic agent; Z72.0 Tobacco use
CPT/HCPCS: 99283; A9270; 99282

== ENCOUNTER 2021-06-15 01:18 | Emergency (ER) | payer SELFPAY ==
--- NOTE | 2021-06-15 03:12 | EDM.PDOC ---
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 Hale is a pleasant 31-year-old woman who states that her LMP was 04/17/2021 = 8w 3d gestation, VLADISLAV 01/22/2022, G1, P0, who states that she developed vaginal spotting and cramping around 22:00 to 23:00 last night, Tuesday, . She did not take any [id number] or home remedies prior to coming to the ED. Here in the ED, the patient is found to be hemodynamically stable, afebrile, saturating 100% on room air. She appears to be comfortable, in no acute distress. The patient states that she has been having nausea during this , otherwise, prior to last night, the patient denies having a recent fever, chil ls, sore throat, ear pain, nasal or sinus congestion, cough, dyspnea, chest pain, palpitations, vomiting, constipation, diarrhea, abdominal pain, urinary symptoms, recent weight gain or weight loss, recent bloody bowel movements or black bowel movements, recent joint aches, headaches, or rashes. The patient's PCP is Jenni Vazquez NP. Her Meter Readers Supervisor is going to be Dr. Lorena Vazquez, at [facility]. She has an appointment to see Dr. Vazquez in late June. She has not received a COVID vaccination. Abdomen Pain Score (Numeric/FACES): 4 - Related Data Allergies Allergy/AdvReac Type Severity Reaction Status Date / Time grass pollen Allergy Severe Cannot Verified 06/15/21 02:22 Remember latex Allergy Severe Hives Verified 06/15/21 02:22 promethazine Allergy Severe Rash Verified 06/15/21 02:22 cow milk Allergy Severe Hives Uncoded 06/15/21 02:22 essential oils Allergy Severe Anaphylactic Uncoded 06/15/21 02:22 Shock tylenol with codeine AdvReac Severe Vomiting Uncoded 06/15/21 02:22 Home Meds: Home Meds Albuterol [Proventil Neb Soln] 2.5 mg NEB ASDIRECTED 01/28/19 [History] Epi-Pen. 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: Reports: Endometriosis (laparoscopy-proven) : 1 Para: 0 Psychiatric History: Reports: Depression (untreated), PTSD (untreated) Endocrine/Metabolic History: Reports: Obesity/BMI 30+, Other (See Below) (Prediabetes) - Infectious Disease History Infectious Disease History: Reports: Chicken Pox - Past Surgical History HEENT Surgical History: Reports: Adenoidectomy, Oral Surgery (dental extractions), Tonsillectomy GI Surgical History: Reports: Colonoscopy (x 3), EGD (x 2) Female Surgical History: Reports: Other (See Below) (Exploratory laparoscopy for endometriosis x 2) Musculoskeletal Surgical History: Reports: Other (See Below) (Right patella realignment) Social & Family History - Tobacco Use Tobacco Use Status *Q: Former Tobacco User Month/Year Tobacco Last Used: Quit 04/17/21 - Caffeine Use Caffeine Use: Reports: Coffee, Energy Drinks, Soda, Tea - Recreational Drug Use Recreational Drug Use: No - Living Situation & Occupation Living situation: Reports: (), with Significant Other (Boyfriend + his grandparents) 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 ED EXAM - Physical Exam Exam: See Below Exam Limited By: No Limitations General Appearance: Alert, WD/WN, No Apparent Distress Eye Exam: Bilateral Eye: EOMI, Normal Inspection Ears: Normal External Exam, Hearing Grossly Normal Nose: Normal Inspection Throat/Mouth: Normal Inspection, Normal Lips, Normal Voice, No Airway Compromise Head: Atraumatic, Normocephalic Neck: Normal Inspection, Full Range of Motion Respiratory/Chest: No Respiratory Distress, Lungs Clear, Normal Breath Sounds, No Accessory Muscle Use Cardiovascular: Normal Peripheral Pulses, Regular Rate, Rhythm, No Gallop, No JVD, No Murmur, No Rub GI/Abdominal Exam: Normal Bowel Sounds, Soft, No Organomegaly, No Distention, No Abnormal Bruit, No Mass, Tender (nonfocal across lower abdomen) (Female) Exam: Normal External Exam, Cervical Discharge (light greenish), Other (Cervix closed. No visible blood - new or old. Greenish vaginal discharge. The patient reported vaginal discomfort with placement of the speculum.) Back Exam: Normal Inspection, Full Range of Motion Extremities: Normal Inspection, Normal Range of Motion, Normal Capillary Refill Neurological: Alert, Oriented, Normal Cognition, No Motor/Sensory Deficits Psychiatric: Normal Affect Skin Exam: Warm, Dry, Intact, Normal Color, No Rash Course - Vital Signs Last Recorded V/S: Last Vital Signs Temp 36.9 C 06/15/21 02:16 Pulse 81 06/15/21 02:16 Resp 16 06/15/21 02:16 BP 123/82 06/15/21 02:16 Pulse Ox 100 06/15/21 02:16 - Orders/Labs/Meds Orders: Active Orders 24 hr Category Date Time Status OB Transvaginal [US] Stat Exams 06/15/21 03:06 Taken CULTURE URINE [MREF] Stat Lab 06/15/21 03:25 Received PATIENT RETYPE [BBK] Routine Lab 06/15/21 04:19 Ordered Labs: Laboratory Tests 06/15/21 06/15/21 06/15/21 Range/Units 03:15 03:15 03:15 WBC 8.71 (3.98-10.04) K/mm3 RBC 4.53 (3.98-5.22) M/mm3 Hgb 13.8 (11.2-15.7) gm/dl Hct 40.4 (34.1-44.9) % MCV 89.2 (79.4-94.8) fl MCH 30.5 (25.6-32.2) pg MCHC 34.2 (32.2-35.5) g/dl RDW Std Deviation 38.8 (36.4-46.3) fL Plt Count 294 (182-369) K/mm3 MPV 9.2 L (9.4-12.3) fl Neutrophils % (Manual) 57 (40-60) % Band Neutrophils % 0 (0-10) % Lymphocytes % (Manual) 33 (20-40) % Atypical Lymphs % 0 % Monocytes % (Manual) 9 (2-10) % Eosinophils % (Manual) 0 L (0.7-5.8) % Basophils % (Manual) 1 (0.1-1.2) Platelet Estimate Adequate RBC Morph Comment Normal Sodium 138 (136-145) mEq/L Potassium 3.4 L (3.5-5.1) mEq/L Chloride 104 (98-107) mEq/L Carbon Dioxide 27 (21-32) mEq/L Anion Gap 10.4 (5-15) BUN 8 (7-18) mg/dL Creatinine 0.7 (0.55-1.02) mg/dL Est Cr Clr Drug Dosing 87.87 mL/min Estimated GFR (MDRD) > 60 (>60) mL/min BUN/Creatinine Ratio 11.4 L (14-18) Glucose 86 (70-99) mg/dL Calcium 8.5 (8.5-10.1) mg/dL Total Bilirubin 0.4 (0.2-1.0) mg/dL AST 23 (15-37) U/L ALT 29 (14-59) U/L Alkaline Phosphatase 62 (46-116) U/L Total Protein 7.4 (6.4-8.2) g/dl Albumin 3.4 (3.4-5.0) g/dl Globulin 4.0 gm/dL Albumin/Globulin Ratio 0.9 L (1-2) HCG, Quant 995.0 mIU/mL Urine Color (Yellow) Urine Appearance (Clear) Urine pH (5.0-8.0) Ur Specific [place] (1.005-1.030) Urine Protein (Negative) Urine Glucose (UA) (Negative) Urine Ketones (Negative) Urine Occult Blood (Negative) Urine Nitrite (Negative) Urine Bilirubin (Negative) Urine Urobilinogen (0.2-1.0) Ur Leukocyte Esterase (Negative) Urine RBC (0-5) /hpf Urine WBC (0-5) /hpf Ur Squamous Epith Cells (0-5) /hpf Urine Bacteria (FEW) /hpf Urine Mucus (FEW) /hpf Urine Trichomonas (NOT SEEN) C trachomatis DNA (PCR) N gonorrhoeae DNA (PCR) Blood Type O POSITIVE 06/15/21 06/15/21 Range/Units 03:30 03:33 WBC (3.98-10.04) K/mm3 RBC (3.98-5.22) M/mm3 Hgb (11.2-15.7) gm/dl Hct (34.1-44.9) % MCV (79.4-94.8) fl MCH (25.6-32.2) pg MCHC (32.2-35.5) g/dl RDW Std Deviation (36.4-46.3) fL Plt Count (182-369) K/mm3 MPV (9.4-12.3) fl Neutrophils % (Manual) (40-60) % Band Neutrophils % (0-10) % Lymphocytes % (Manual) (20-40) % Atypical Lymphs % % Monocytes % (Manual) (2-10) % Eosinophils % (Manual) (0.7-5.8) % Basophils % (Manual) (0.1-1.2) Platelet Estimate RBC Morph Comment Sodium (136-145) mEq/L Potassium (3.5-5.1) mEq/L Chloride (98-107) mEq/L Carbon Dioxide (21-32) mEq/L Anion Gap (5-15) BUN (7-18) mg/dL Creatinine (0.55-1.02) mg/dL Est Cr Clr Drug Dosing mL/min Estimated GFR (MDRD) (>60) mL/min BUN/Creatinine Ratio (14-18) Glucose (70-99) mg/dL Calcium (8.5-10.1) mg/dL Total Bilirubin (0.2-1.0) mg/dL AST (15-37) U/L ALT (14-59) U/L Alkaline Phosphatase (46-116) U/L Total Protein (6.4-8.2) g/dl Albumin (3.4-5.0) g/dl Globulin gm/dL Albumin/Globulin Ratio (1-2) HCG, Quant mIU/mL Urine Color Yellow (Yellow) Urine Appearance Clear (Clear) Urine pH 7.0 (5.0-8.0) Ur Specific [place] 1.015 (1.005-1.030) Urine Protein Negative (Negative) Urine Glucose (UA) Negative (Negative) Urine Ketones Negative (Negative) Urine Occult Blood 1+ H (Negative) Urine Nitrite Negative (Negative) Urine Bilirubin Negative (Negative) Urine Urobilinogen 0.2 (0.2-1.0) Ur Leukocyte Esterase 2+ H (Negative) Urine RBC 0-5 (0-5) /hpf Urine WBC 5-10 H (0-5) /hpf Ur Squamous Epith Cells 0-5 (0-5) /hpf Urine Bacteria Moderate H (FEW) /hpf Urine Mucus Not seen (FEW) /hpf Urine Trichomonas Few H (NOT SEEN) C trachomatis DNA (PCR) Not detected N gonorrhoeae DNA (PCR) Not detected Blood Type Meds: Medications Discontinued Medications Generic Name Dose Route Start Last Admin Trade Name Freq PRN Reason Stop Dose Admin Metronidazole 500 mg 06/15/21 06:03 Metronidazole 500 Mg Tab PO 06/15/21 06:04 ONETIME STA - Re-Assessments/Exams Free Text/Narrative Re-Assessment/Exam: 06/15/21 03:07 I have ordered several blood tests, including an ABO/Rh, a urinalysis, and a transvaginal ultrasound. We will keep the patient NPO. 06/15/21 03:35 On pelvic examination, the cervix is closed, but there is a greenish vaginal discharge, and the patient reported discomfort to placement of the speculum. No visible blood, new appearing or old. She reported that she has had vaginal discomfort and a discharge for about 2 weeks. I swabbed the vagina and have ordered a wet prep, GC/chlamydia by PCR, and a vaginal culture. 06/15/21 05:25 The patient's CBC is unremarkable. Her CMP is remarkable for slight hypokalemia of 3.4, and is otherwise unremarkable. Her quantitative hCG is 995. Her blood type is O-Pos. Her urinalysis is remarkable for 1+ occult blood with 0-5 RBCs, 2+ leukocyte esterase with 5-10 WBCs, nitrate negative with moderate bacteria, and 0-5 squamous epithelial cells. Vaginal GC/chlamydia by PCR is negative for both. Her vaginal wet prep is remarkable for few trichomonas, few clue cells, moderate WBCs, few epithelial cells, rare RBCs, and positive for trichomonas antigen. Transvaginal ultrasound is read by [facility] as: 1. Intrauterine gestational sac-like structures, which would correspond to estimated gestational ages of 4 weeks 6 days and 5 weeks 0 days were they to represent gestational sacs. Differential diagnosis includes normal early , failed and nonvisualized ectopic with a pseudo-sac. Suggest correlation with serial beta-hCG's and follow-up ultrasound when clinically appropriate. 2. 2.3 cm thick-walled left ovarian corpus luteum. 06/15/21 06:[address] Bailey at 05:56. He feels that the patient is , and that her LMP is likely off. He recommended treatment for trichomonas with metronidazole 500 mg po BID x 7 days, and for her boyfriend to be treated with metronidazole 2 g po x 1. He recommended that she follow-up with an OB in 10 to 14 days. 06/15/21 06:15 Test results and my conversation with Dr. Bailey discussed with the patient and her boyfriend. Since we are not sure if any pharmacies are open today, I will submit an [facility] prescription for 30 tablets of metronidazole 500 mg to the patient. She will take a total of 14 of them - 1 tab BID x 7 days, and he will take 4 of them (2 g) all at once, leaving 2 remaining tablets that should be thrown in the trash. Departure - Departure Time of Disposition: 06:19 Disposition: Home, Self-Care 01 Condition: Good Clinical Impression: Trichomonas vaginalis infection, First trimester - Discharge Information *PRESCRIPTION DRUG MONITORING PROGRAM REVIEWED*: Not Applicable *COPY OF PRESCRIPTION DRUG MONITORING REPORT IN PATIENT GUME: Not Applicable Instructions: Trichomoniasis Referrals: Lorena Vazquez MD [Primary Care Provider] - Jenni Vazquez NP [Ordering Only Provider] - Forms: ED Department Discharge Additional Instructions: You were seen in the emergency room for spotting and cramping in the setting of early . You have also experienced vaginal discomfort and a discharge for the past 2 weeks. Work-up in the ER included several blood tests, a urinalysis, a vaginal GC/chlamydia by PCR test, a vaginal wet prep, and a transvaginal ultrasound. Your work-up found that you have trichomonas vaginalis. Your ultrasound found an early , likely around 5 weeks, with a quantitative hCG ( hormone) level of 995. A prescription for the antibiotic metronidazole (Flagyl) has been provided to you via [facility]. Take 1 tablet of metronidazole every 12 hours, starting this morning, 06/15/2021, for 7 days, as prescribed. Finish the entire prescription unless told otherwise by a doctor. The prescription contains 30 tablets. Your boyfriend is to take 4 tablets (2 g) once, now. The remaining 2 tablets should be thrown into the trash. Do not flush them down the toilet. We recommend that you follow-up with your venue manager, Dr. Lorena Vazquez, in the next 10 to 14 days. If any other problems, please do not hesitate to return to the ER. Sepsis Event Note (ED) - Focused Exam Vital Signs: Vital Signs Temp Pulse Resp BP Pulse Ox 06/15/21 02:16 36.9 C 81 16 123/82 100 - My Orders Last 24 Hours: My Active Orders 06/15/21 03:06 OB Transvaginal [US] Stat 06/15/21 03:25 CULTURE URINE [MREF] Stat 06/15/21 04:19 PATIENT RETYPE [BBK] Routine - Assessment/Plan Last 24 Hours: My Active Orders 06/15/21 03:06 OB Transvaginal [US] Stat 06/15/21 03:25 CULTURE URINE [MREF] Stat 06/15/21 04:19 PATIENT RETYPE [BBK] Routine
[2021-06-15 05:12] LABS: C. TRACHOMATIS BY PCR NOT DETECTED; N. GONORRHOEAE BY PCR NOT DETECTED
[2021-06-15] MEDS ORDERED: metroNIDAZOLE 500 MG Tab PO STA (06:03)
--- NOTE | 2021-06-15 16:16 | US ---
First trimester obstetrical ultrasound: Multiple real-time images were obtained transvaginally. Comparison: No prior study available for this . Findings: Very small gestational sac appears to be present within the endometrial cavity. This is too small to visualize yolk sac or pole. Minimal fluid is also felt to be present within the endometrial cavity. Right ovary is not seen. Left ovary shows a small cyst measuring 2.3 cm believed to be physiologic. No free fluid is seen. Impression: 1. Very small gestational sac is felt to be present within the endometrial cavity with a small amount of fluid also seen within the endometrial cavity. Gestational age correlates to around 5 weeks 0 days. Follow-up could be obtained in 14 days to confirm increasing size to confirm normal developing . 2. Small normal cyst within the left ovary. Diagnostic code #1 I mostly agree with preliminary report from johanny, finalized on 06/15/21, 6:21 AM CDT, code 2
== END 2021-06-15 06:37 | disposition home or self-care (01) ==
LOC: JD.ED 01:18
DX: O98.311 Other infections with a predominantly sexual mode of transmission complicating pregnancy, first trimester (principal); A59.01 Trichomonal vulvovaginitis; J45.909 Unspecified asthma, uncomplicated; O99.211 Obesity complicating pregnancy, first trimester; E66.9 Obesity, unspecified; Z87.891 Personal history of nicotine dependence; Z91.048 Other nonmedicinal substance allergy status; Z91.040 Latex allergy status; Z88.8 Allergy status to other drugs, medicaments and biological substances; Z91.011 Allergy to milk products; Z88.5 Allergy status to narcotic agent; Z79.899 Other long term (current) drug therapy; Z3A.01 Less than 8 weeks gestation of pregnancy
CPT/HCPCS: 36415; 76817; 76817-26; 80053; 81001; 84702; 85007; 85027; 86900; 86901; 87086; 87210; 87491; 87591; 87808; 99284-25

== ENCOUNTER 2022-02-22 20:20 | Emergency (ER) | payer MEDICAID ==
[2022-02-22] MEDS ORDERED: Lidocaine 1% 10 ML MDV INJECT ONE (22:09)
[2022-02-22] MEDS ORDERED: Lidocaine 1% 10 ML MDV ONE (22:11)
== END 2022-02-23 00:20 | disposition home or self-care (01) ==
LOC: JD.ED 20:20
DX: G97.1 Other reaction to spinal and lumbar puncture (principal); R51.9 Headache, unspecified; K21.9 Gastro-esophageal reflux disease without esophagitis; E66.9 Obesity, unspecified; Z68.32 Body mass index [BMI] 32.0-32.9, adult; Z79.899 Other long term (current) drug therapy
CPT/HCPCS: 36415; 62273; 85025; 99284

== ENCOUNTER 2022-02-25 22:57 | Emergency (ER) | payer MEDICAID ==
[2022-02-25] MEDS ORDERED: Cephalexin 500 MG Cap PO ONE (23:46)
== END 2022-02-26 00:20 | disposition home or self-care (01) ==
LOC: JD.ED 22:57
DX: T81.49XA Infection following a procedure, other surgical site, initial encounter (principal); J45.909 Unspecified asthma, uncomplicated; E66.9 Obesity, unspecified; Z68.38 Body mass index [BMI] 38.0-38.9, adult; Z79.899 Other long term (current) drug therapy; Z91.048 Other nonmedicinal substance allergy status; Z91.040 Latex allergy status; Z88.8 Allergy status to other drugs, medicaments and biological substances; Z91.011 Allergy to milk products; Z91.018 Allergy to other foods; Z88.5 Allergy status to narcotic agent
CPT/HCPCS: 87070; 87205; 99283; A9270; 87075; 87077; 87186

== ENCOUNTER 2022-11-27 07:33 | Emergency (ER) | payer MEDICAID ==
[2022-11-27 10:41] LABS: CORONAVIRUS COVID-19 NAA POSITIVE (NEGATIVE)
== END 2022-11-27 09:15 | disposition home or self-care (01) ==
LOC: JD.ED 07:33
DX: U07.1 COVID-19 (principal); J45.909 Unspecified asthma, uncomplicated; E66.9 Obesity, unspecified; Z68.35 Body mass index [BMI] 35.0-35.9, adult; Z91.040 Latex allergy status; Z91.048 Other nonmedicinal substance allergy status; Z91.011 Allergy to milk products; Z88.8 Allergy status to other drugs, medicaments and biological substances; Z88.5 Allergy status to narcotic agent
CPT/HCPCS: 0241U; 71045; 99284

== ENCOUNTER 2023-01-30 10:57 | Emergency (ER) | payer MEDICAID ==
[2023-01-30] MEDS: Sodium Chloride 0.9% 1,000 ML IV STA ×2 (12:19→12:42)
[2023-01-30] MEDS: Metoclopramide 10 MG/2 ML SDV IVPUSH ONE ×2 (12:20→12:42)
[2023-01-30] MEDS: diphenhydrAMINE 50 MG/ML SDV IVPUSH ONE ×2 (12:20→12:42)
[2023-01-30] MEDS: Ketorolac 30 MG/ML SDV IVPUSH ONE ×2 (12:21→12:42)
[2023-01-30] MEDS: HYDROmorphone 0.5 MG/0.5 ML Syringe IVPUSH ONE ×2 (12:22→12:42)
[2023-01-30] MEDS ORDERED: Ketorolac 30 MG/ML SDV IM ONE (12:35)
[2023-01-30] MEDS ORDERED: HYDROmorphone 1 MG/ML Syringe IM ONE (12:35)
[2023-01-30] MEDS ORDERED: diphenhydrAMINE 50 MG/ML SDV IM ONE (12:36)
[2023-01-30] MEDS ORDERED: Metoclopramide 10 MG/2 ML SDV IM ONE (12:36)
[2023-01-30 13:12] LABS: CORONAVIRUS COVID-19 NAA NEGATIVE (NEGATIVE)
[2023-01-30] MEDS ORDERED: Acetaminophen 325 MG Tab PO ONE (13:51)
== END 2023-01-30 14:00 | disposition home or self-care (01) ==
LOC: JD.ED 10:57
DX: G43.909 Migraine, unspecified, not intractable, without status migrainosus (principal); J45.909 Unspecified asthma, uncomplicated; E66.9 Obesity, unspecified; Z68.35 Body mass index [BMI] 35.0-35.9, adult; Z87.891 Personal history of nicotine dependence; Z88.5 Allergy status to narcotic agent; Z91.018 Allergy to other foods; Z91.048 Other nonmedicinal substance allergy status; Z91.040 Latex allergy status; Z88.8 Allergy status to other drugs, medicaments and biological substances; Z91.011 Allergy to milk products; Z79.899 Other long term (current) drug therapy; Z20.822 Contact with and (suspected) exposure to COVID-19
CPT/HCPCS: 0240U; 36415; 70450; 80053; 85025; 96372; 99284; J1170; J1200; J1885; J2765; J7030